=== PATIENT | female | born 1940 | race Caucasian/White ===

== ENCOUNTER 2016-06-27 06:09 | Inpatient (IN) | payer MEDICARE, BC ==
--- NOTE | 2016-06-21 15:36 | HP ---
PREOPERATIVE HISTORY AND PHYSICAL: DATE OF ADMISSION/SURGERY: 06/27/16 DATE OF OFFICE VISIT: 06/21/16 PROVIDING DOCTOR: Peter Flores MD PROCEDURE: Right total hip replacement. CHIEF COMPLAINT: Right buttock, posterior thigh, and groin pain. HISTORY OF PRESENT ILLNESS: Ms. Benites is a 75-year-old female who presents to the clinic for ongoing right buttock, thigh, and groin pain due to severe osteoarthritis of her right hip. She has failed conservative measures and therefore has agreed to undergo a right total hip replacement with Dr. Carbajal on 06/27/16. PAST MEDICAL HISTORY: Hypothyroidism. Denies history of diabetes. Denies any history of DVT or em bolism. PAST SURGICAL HISTORY: Left total hip replacement, cholecystectomy, and tonsillectomy and adenoidec diana. MEDICATIONS: 1. Levothyroxine sodium. 2. Multivitamins. ALLERGIES: PENICILLIN causes a rash. She is not allergic to third generation cephalosporins. SOCIAL HISTORY: She lives alone. She is retired. She denies tobacco or alcohol use. She reports occasional exercise. REVIEW OF SYSTEMS: General: Negative for fevers, chills, night sweats. No known anesthesia proble HEENT: Negative for headache, lightheadedness, or syncopal episodes. Integumentary: Negative for abrasions, lesions, or open wounds. Cardiothoracic: Negative for chest pain, palpitations, or edema. Negative for hypertension. Pulmonary: Negative for shortness of breath with exertion, infrastructure design engineer simone cough, or COPD. GI: Negative for nausea, vomiting, diarrhea, or GERD. : Negative for noctur ia, urinary frequency, history of UTIs, or kidney problems. Musculoskeletal: Positive for current c omplaint. Neuro: Negative for paresthesias, numbness, history of seizure, stroke, or epilepsy. En docrine: Negative for diabetes. Positive for hypothyroidism. Heme: Negative for easy bruising, an emia, excessive bleeding, history of DVT or PE. Infectious Disease: Negative for history of MRSA, h ep C, or HIV. PHYSICAL EXAMINATION GENERAL: Well-developed, well-nourished 75-year-old female in no acute distress. Alert and oriented x3. Appropriate mood and affect. VITAL SIGNS: Height 66, weight 165. Pulse 72, blood pressure 130/68, respiratory rate 14. BMI 26. 6. HEENT: Normocephalic, atraumatic. NECK: Supple. Throat clear. PULMONARY: Lungs are clear to auscultation bilaterally. No wheezing, rhonchi or rales. CARDIO: Regular rate and rhythm. S1 and S2. No murmurs, gallops, or rubs. No edema. No carotid bruits. ABDOMEN: Positive bowel sounds, soft, nontender. MUSCULOSKELETAL: Right lower extremity antalgic gait favoring the right side. Right hip flexion in the 90 degrees. Straight leg raise causing groin pain on the right. External rotation to 25 degree s with pain. Internal rotation to 10 degrees with pain. She is able to pull her knees together and with some pain. Hip is nontender to palpation; +2 dorsalis pedis and posterior tibialis puls e. Sensation intact to light touch distally. NEUROLOGIC: Alert and oriented x3. Cranial nerves grossly intact. Sensation intact to light touch . DIAGNOSTIC STUDIES: Multiple view x-rays of the right hip reveal osteopenia with large osteophytes on the femoral neck and the acetabulum and irregular subchondral bone consistent with osteoarthriti s. IMPRESSION: Right hip severe osteoarthritis. PLAN/RECOMMENDATIONS: The patient is scheduled to undergo a right total hip replacement with Dr. Carbajal on 06/27/16. She will return to the office 4 to 6 weeks postop for followup and x-rays. Percoc et will be used postoperatively for pain medication and Colace for opioid-induced constipation preve ntion. EZEQUIEL GODOY [id number]/[facility] #: [id number]
[~2016-06-27 06:09] MED LIST: Buffered Lidocaine 1% SYR 3ML* 3 ML/SYR SYRINGE INTRADERM ONE; Dexamethasone IV* 4 MG/ML 1 ML (4 MG) IV SLOW PU ONE; Famotidine IV* 10 MG/ML 2 ML (20 mg) IV ONE; oxyCODONE/Acetamin 5/325 MG* TAB PO PRN
[2016-06-27] MEDS ORDERED: Dexamethasone IV* 4 MG/ML 1 ML (4 MG) ONE (06:10)
[2016-06-27] MEDS ORDERED: Clindamycin 900 MG IVPREMIX(* 0 MG/0 ML SDV IV ONE (06:10)
[2016-06-27] MEDS ORDERED: Famotidine IV* 10 MG/ML 2 ML (20 mg) ONE (06:10)
[2016-06-27] MEDS ORDERED: Midazolam* 1 MG/ML 5 ML VIAL (5 MG) ONE ×2 (07:12→08:27)
[2016-06-27] MEDS ORDERED: Bupivacaine 0.5% W/EPI SDV* 30 ML VIAL ONE (07:14)
[2016-06-27] MEDS ORDERED: ceFAZolin 2 GM PREMIX(*) 2 GM/50 ML BAG IVPB ONE (07:15)
[2016-06-27] MEDS ORDERED: Bupivacaine 0.5% SDV PF* 30 ML VIAL ONE (07:25)
[2016-06-27] MEDS ORDERED: Propofol* 10 MG/ML 20 ML BTL IV PUSH ONE (07:25)
[2016-06-27] MEDS ORDERED: Ondansetron INJ* 2 MG/ML VIAL ONE (07:25)
[2016-06-27] MEDS ORDERED: Morphine PF AMP (0.5MG/ML)* 5 MG/10 ML AMP ONE (07:27)
[2016-06-27] MEDS ORDERED: KETAMINE HCL* 50 MG/ML 10 ML VIAL ONE (07:27)
[2016-06-27] MEDS ORDERED: Glycopyrrolate IV* 0.2 MG/ML 1 ML VIAL ONE (07:51)
[2016-06-27] MEDS ORDERED: Phenylephrine IV* 40 MCG/ML 10 ML SYRINGE ONE (07:57)
[2016-06-27] MEDS ORDERED: Phenylephrine INJ* 10 MG/ML 1 ML VIAL (10 MG) ONE (07:58)
[2016-06-27] MEDS ORDERED: EPHEDrine (Pressors)* 50 MG/ML VIAL ONE (08:36)
[2016-06-27] MEDS ORDERED: Nalbuphine* 20 MG/ML 1 ML VIAL IV PRN ×2 (08:38)
[2016-06-27] MEDS ORDERED: fentaNYL* 50 MCG/ML 2 ML VIAL (100 MCG VIAL) IV PRN (08:38)
[2016-06-27] MEDS ORDERED: Naloxone* 0.4 MG/ML 1 ML VIAL IV PRN (08:38)
[2016-06-27] MEDS ORDERED: Ondansetron INJ* 2 MG/ML VIAL IV PRN (08:38)
[2016-06-27] MEDS ORDERED: oxyCODONE/Acetamin 5/325 MG* TAB PO PRN (08:38)
[2016-06-27] MEDS ORDERED: Ropivacaine* 300 MG in NS 0.9% 250 ML* 240 ML EPIDURAL SCH (09:00)
[2016-06-27] MEDS ORDERED: diPHENhydraMINE IV* 50 MG/ML 1 ml VIAL (BENADRYL) IV PRN (09:46)
[2016-06-27] MEDS ORDERED: ceFAZolin 1 GM in Dextrose (*) 1 GM/50 ML BAG IVPB SCH (10:00)
--- NOTE | 2016-06-27 10:31 | RAD ---
INDICATION: Status post right hip replacement surgery. COMPARISON: Comparison is made with a prior x-ray study of the pelvis from March 15, 2016. TECHNIQUE: An AP view of the pelvis was obtained. FINDINGS: The patient is status post right total hip replacement surgery. The bones and prostheses are in normal alignment. There is air around the proximal femur consistent with the patient's recent surgery and multiple surgical rosetta present laterally. The patient is also status post remote total left hip replacement surgery. IMPRESSION: STATUS POST TOTAL RIGHT HIP REPLACEMENT SURGERY.
[2016-06-27] MEDS: ceFAZolin 1 GM in Dextrose (*) 1 GM/50 ML BAG IVPB SCH ×2 (14:14→20:05)
[2016-06-27] MEDS: Docusate CAP* 100 MG PO SCH (20:05)
--- NOTE | 2016-06-27 21:01 | OP ---
CC: Dr. Pawan White in [place] OPERATIVE REPORT: DATE OF OPERATION: 06/27/16 DATE OF : 36 SURGICAL CARE: Right hip, 06/27/16. SURGEON: Peter Flores MD. MEAT SELECTOR: EZEQIUEL Gee, and Kely Sow, surgical attendant. ANESTHESIOLOGIST: Dr. Bc Lima. ANESTHESIA: Spinal with Duramorph and epidural. PRE-OP DIAGNOSIS: Severe arthritis of the right hip. POST-OP DIAGNOSIS: Severe arthritis of the right hip. OPERATIVE PROCEDURE: Right total hip replacement. COMPONENTS UTILIZED: Jeanne Continuum cup 52-mm cluster holes, 1 screw was placed superiorly. A ne utral linear for a 52 cup and a 36 head. On the femoral side, an M/L Taper standard 12.5 with a -3. 5, 36-mm head cobalt chrome. COMPLICATIONS: There were no complications. DRAINS: There were no drains. BLOOD LOSS: 200 mL. REPLACEMENT: Crystalloid fluids. OPERATIVE INDICATION: Severe arthritis of the right hip that has been no longer responsive to nonop erative care and right total hip replacement was recommended. DESCRIPTION OF PROCEDURE: The patient was brought to the operating room and placed on the operating table in a supine position. Following the administration of the anesthetic, she was returned to th e supine position and a Wynn catheter was inserted. She was carefully placed in the left lateral p osition with the downside left leg padded to see that there was no pressure on the peroneal nerve at the fibular head and neck. The groin was sealed off and the pelvis was secured over the ASIS in th e sacrum with a hip positioner. Blankets were placed between the legs and the right hip was given a preliminary chlorhexidine prep and then a final ChloraPrep. After prepped, draping, and sealing of f, we did our universal protocol time-out confirming Andreina Benites and planned for right total hip rep lacement. We all agreed and we proceeded. The hip was approached with a curving posterolateral ski n incision going from the greater trochanter distally for 1.5 to 2 inches and curving slightly proxi mk and posteriorly towards the posterior iliac spine for 2.5 to 3 inches. The skin and subcutane ous divided. Hemostasis was checked and achieved throughout the case utilizing electrocautery. The iliotibial fascia was opened over the greater trochanter and over the fibers of the gluteus katherine going slightly posteriorly. A Charnley retractor was inserted. The gluteus medius and minimus wer e carefully retracted anteriorly exposing the piriformis and the conjoint tendon. Piriformis and co njoint tendon were each marked with a #2 Surgidac and then a careful posterior approach to the hip w as done with careful hemostasis staying close to bone and femoral neck. The femoral head had a larg e posterior osteophyte that we maneuvered around. The hip was dislocated without difficulty and the femoral neck was marked for the M/L taper cutting guide and cut a little less than a fingerbreadth proximal to the lesser trochanter. Head and neck was removed. The head was completely eburnated an d especially in the region on the posterior osteophyte, which was an inch and a half in size, juttin g out and down. Retraction for the acetabulum, sharp Hohmann's anteriorly and posteriorly, blunt Ho hmann's superiorly and inferiorly. The remains of the labrum were exercised sharply. The medial so ft tissues were excised. Reaming was then done, 44, 46, 48, 50, and 52. We cleaned the acetabulum several times with pulsed saline. A 52 Continuum cup was impacted into the position and 45 degrees of abduction and 20 degrees of anteversion. One screw was placed superiorly. Neutral liner was raj sonia with nice fit. The acetabulum was then packed with a saline soaked lap sponge. On the femoral side we used the can al finder and the trochanteric reamer. Broaching was done 5 through 12.5 and we did a trial reducti on with a 12.5 standard neck and +0 and this was a little tight, which showed the 12.5 standard M/L taper stem, this was impacted into position and we elected to use the - 3.5, 36 mm head, which was p laced on a clean trunnion. Examination showed a negative push, pull, and extension. No tendency to wards levering with IR, ER and extension. Flexion of 90 degrees allowed, adduction of 30 degrees, i nternal rotation of 30 degrees prior to this location. We checked again for hemostasis. The area w as irrigated with 2 L of pulsed saline. After obtaining final hemostasis, I did not think drains we re necessary. The piriformis, conjoint tendon were packed, reattached through 2 drill holes to the posterior superior greater trochanter and this included the underlying capsular flap as well. Iliot ibial band closed with interrupted #1 Polysorb in [id number] fashion and more proximally with g luteus katherine, we used 0 Polysorb and the deep subcu with 2-0 Polysorb, 2-0 Polysorb on the superfi cial subcu and then rosetta on the skin. We irrigated several times during the closure with saline. The skin was washed and dried and covered with Betadine soaked release, sterile gauze, an ABD kali rafat and paper tape. The patient was returned to the hospital bed into the recovery room in a stable and satisfactory condition having tolerated the procedure very well. [id number]/[facility] #: [id number]
[2016-06-28] MEDS: ceFAZolin 1 GM in Dextrose (*) 1 GM/50 ML BAG IVPB SCH (01:53)
[2016-06-28] MEDS: Levothyroxine TAB* 112 MCG TAB PO SCH (05:14)
[2016-06-28] MEDS ORDERED: Morphine INJ* 2 MG/ML 1 ML SYRINGE IV PRN (06:00)
[2016-06-28] MEDS ORDERED: oxyCODONE/Acetamin 5/325 MG* TAB PO PRN (06:00)
[2016-06-28] MEDS ORDERED: Ondansetron INJ* 2 MG/ML VIAL IV PRN (06:00)
[2016-06-28 06:42] LABS: Hematocrit 29 % (35-47); Hemoglobin 9.5 g/dl (12.0-16.0)
[2016-06-28 06:57] LABS: BUN/Creatinine Ratio 16.4 (8-20); Calcium 8.7 mg/dL (8.6-10.3); EGFR African American 109.8 (>60); EGFR Non-African American 85.3 (>60); Potassium 3.8 mmol/L (3.5-5.0)
[2016-06-28] MEDS: oxyCODONE/Acetamin 5/325 MG* TAB PO PRN ×4 (07:46→20:33)
[2016-06-28] MEDS: Docusate CAP* 100 MG PO SCH ×2 (09:09→20:33)
[2016-06-28] MEDS: Aspirin TAB* 325 MG PO SCH (09:09)
[2016-06-28] MEDS: Magnesium Hydroxide LIQ* 30 ML UDC PO PRN ×2 (09:09→20:34)
[2016-06-28] MEDS: Vitamin THERAPEUTIC TAB PO SCH (09:09)
[2016-06-29 06:24] LABS: Hematocrit 30 % (35-47)
[2016-06-29] MEDS: Levothyroxine TAB* 112 MCG TAB PO SCH (06:36)
[2016-06-29] MEDS: oxyCODONE TAB* 5 MG TAB PO PRN ×4 (06:39→21:15)
[2016-06-29] MEDS: Vitamin THERAPEUTIC TAB PO SCH (09:59)
[2016-06-29] MEDS: Docusate CAP* 100 MG PO SCH ×2 (09:59→21:17)
[2016-06-29] MEDS: Aspirin TAB* 325 MG PO SCH (09:59)
[2016-06-30] MEDS: oxyCODONE TAB* 5 MG TAB PO PRN ×2 (03:29→08:42)
[2016-06-30] MEDS: Levothyroxine TAB* 112 MCG TAB PO SCH (05:50)
[2016-06-30 06:40] LABS: Hematocrit 27 % (35-47); Hemoglobin 9.1 g/dl (12.0-16.0)
[2016-06-30] MEDS: Vitamin THERAPEUTIC TAB PO SCH (08:42)
[2016-06-30] MEDS: Docusate CAP* 100 MG PO SCH (08:42)
[2016-06-30] MEDS: Aspirin TAB* 325 MG PO SCH (08:42)
[2016-06-30 11:55] VITALS: BP 109/67
[2016-06-30] MEDS: oxyCODONE/Acetamin 5/325 MG* TAB PO PRN (13:02)
--- NOTE | 2016-07-02 23:52 | DS ---
DISCHARGE SUMMARY: DATE OF ADMISSION/SURGERY: 06/27/16 DATE OF DISCHARGE: 06/30/16 CHIEF COMPLAINTS: 1. Right hip osteoarthritis. 2. Hypothyroidism. DISCHARGE DIAGNOSES: 1. Status post right total hip replacement. 2. Hypothyroidism. PROCEDURE: Right total hip arthroplasty. CONSULTATIONS: 1. Physical therapy. 2. Occupational therapy. BRIEF HISTORY: Ms. Benites is a very pleasant 75-year-old female with severe end- stage degenerative osteoarthritis of the right hip, who failed conservative treatment and elected to undergo a right total hip arthroplasty on 06/27/[address] Flores. HOSPITAL COURSE: Ms. Benites was admitted to [facility] on 06/27/16, where she underwent an uncomplicated right total hip arthroplasty. Postoperatively, she recovered on the surgical short-stay unit. Her Wynn was removed on postoperative day 2. She was voiding on her own without difficulty, she was advanced to a regular diet, and her pain was controlled with p.o. Percocet. She was restarted on her home medications. Her labs and vital signs remained stable. She was able to bear weight as tolerated on the right lower extremity. She advanced appropriately with physical therapy and occupational therapy. Her DVT prophylaxis was managed in help of Lovenox. By postoperative day 3, she was orthopedically and medically stable for discharge to go home with home services. PHYSICAL EXAMINATION: General: Well-appearing, in no acute distress. Alert and oriented x3. Vital Signs: On date of discharge, temperature of 98.2, pulse rate of 89, respiratory rate of 16, oxygen saturation of 94% on room air, and blood pressure 126/59. Incision was noted to be benign without erythema, drainage, or visible clinical signs of infection. On the right hip, the gauze and paper tape dressing was applied with triple antibiotic ointment over the rosetta, which appeared all intact. The patient had equal dorsiflexion and plantar flexion on bilateral feet and posterior tibial pulses were 2+. Negative Homans sign bilaterally. Sensation to light touch was intact. LABORATORY DATA: On date of discharge includes an H and H of 9.1 and 27. RADIOGRAPHS: Postoperative films show a satisfactory right total hip replacement. DISCHARGE MEDICATIONS: 1. Aspirin 325 mg p.o. daily. 2. Colace 100 mg p.o. b.i.d. 3. Gas-X 1 tablet p.o. daily p.r.n. 4. Lactobacillus 1 tablet p.o. daily. 5. Levothyroxine 112 mcg 1 tablet p.o. daily. 6. Percocet 5/325 mg 1 to 2 tablets every 3 to 4 hours as needed for pain. CONDITION ON DISCHARGE: Stable. DISCHARGE INSTRUCTIONS: Ms. Benites is a very pleasant 75-year-old female, postoperative day 3, status post right total hip arthroplasty, which was uncomplicated. She is orthopedically and medically stable to go home with home services. Her labs and vital signs are stable. She will restart her home medications. She will take aspirin 325 mg p.o. daily for DVT prophylaxis. She will remain weightbearing as tolerated on the right lower extremity. She will have home physical therapy 1 to 2 times a week. She will take Percocet as needed for pain control and Colace up to 3 times a day for constipation. She is educated to call us if she does not have a bowel movement within 48 hours. She will follow up with Dr. Flores in approximately 4 to 6 weeks. Her roestta will be removed by home nursing services. She was instructed to go immediately to the ER should she develop chest pain or shortness of breath. Should she develop fever, increasing pain or redness, she is to call the office immediately. EZEQUIEL HAGER [id number]/[facility] #: [id number] MTDD
== END 2016-06-30 13:30 | disposition home health service (06) | DRG 470 ==
LOC: AA 06:09 → SSU 11:26
PROVIDERS: ADMIT Orthopaedic Surgery; ATTEND Orthopaedic Surgery
PROC: 0SR902Z Replacement of Right Hip Joint with Metal on Polyethylene Synthetic Substitute, Open Approach (ICD-10-PCS; principal; 2016-06-27 07:30)
DX: M16.11 Unilateral primary osteoarthritis, right hip (principal); Z96.642 Presence of left artificial hip joint; D62 Acute posthemorrhagic anemia; E03.9 Hypothyroidism, unspecified; Z88.0 Allergy status to penicillin; M25.751 Osteophyte, right hip; Z79.82 Long term (current) use of aspirin
CPT/HCPCS: 36415; 62327; 72170; 80048; 85014; 85018; 88304; 88311; A9270-GY; C1713; C1776; J0690; J1100; J2250; J2300; J2405; J2704; J2795

== ENCOUNTER 2016-07-06 10:36 | Emergency (ER) | payer MEDICARE, BC ==
[2016-07-06 10:45] VITALS: BP 124/61
--- NOTE | 2016-07-06 12:03 | RAD ---
INDICATION: Right total hip replacement. Pain. COMPARISON: June 27, 2016 TECHNIQUE: An AP view of the pelvis and AP views of the hip in neutral and abducted position were obtained FINDINGS: Bones: There are no acute bony findings. There is recent right-sided hip arthroplasty. Both femoral and acetabular components appear well seated. Joint spaces: Bilateral hip arthroplasty. SI joints/symphysis: The SI joints and symphysis are intact. Other: There are skin rosetta in the superficial soft tissues on the right related to the recent surgery. IMPRESSION: THE RIGHT HIP PROSTHESIS APPEARS NORMALLY SEATED.
--- NOTE | 2016-07-06 12:18 | ED ---
Lower Extremity - HPI Summary HPI Summary: Patient presents with right hip and leg muscle pain. She had a right THR on and was discharged a week ago. She had her first PT session four days ago and felt the therapist was more aggressive with repetitions and number of exercises compared to her previous therapist for her left THR four years ago. Her pain began two days after this session and she has had to increase the amount of pain medication she is using. She denies falling or yanna trauma to the leg or hip and is able to ambulate with her walker. No N/T, warmth or new swelling. She has mature bruising throughout the leg. - History of Current Complaint Chief Complaint: EDExtremityLligia Stated Complaint: PELVIC PAIN, JUST HAD HIP SURGERY ON Time Seen by Provider: 07/06/16 10:59 Hx Obtained From: Patient Mechanism Of Injury: Unknown Onset of Pain: Days Onset/Duration: Days Severity Initially: Mild Severity Currently: Severe Pain Intensity: 7 Timing: Constant Location: Is Discrete @ - right hip and upper thigh Character Of Pain: Sharp, Aching Associated Signs And Symptoms: Positive: Negative Aggravating Factor(s): Movement Alleviating Factor(s): Rest Able to Bear Weight: Yes - with pain - Allergies/Home Medications Allergies/Adverse Reactions: Allergies Allergy/AdvReac Type Severity Reaction Status Date / Time Penicillins Allergy Intermediate Rash Verified 06/21/16 11:10 PMH/Surg Hx/FS Hx/Imm Hx Endocrine/Hematology History: Reports: Hx Thyroid Disease - HYPOTHYROIDISM Denies: Hx Sickle Cell Disease Cardiovascular History: Reports: Hx Rheumatic Fever - A CHILD 12 YEARS OF AGE , NO HEART MURMUR RESULTING FROM, Other Cardiovascular Problems/Disorders - AORTIC ANEURYSM FOUND 07/2009. HAS BEEN AT 4.[facility] FOR THE LAST COUPLE OF YRS Respiratory History: Reports: Hx Asthma - HX OF IN THE PAST Denies: Other Respiratory Problems/Disorders GI History: Reports: Other GI Disorders - CONSTIPATION//"GAS BUILDUP"-GAS PILL HELPS History: Denies: Other Problems/Disorders Musculoskeletal History: Reports: Hx Arthritis - LEFT HIP, RIGHT HIP Sensory History: Reports: Hx Cataracts - BILATERAL, Hx Contacts or Glasses - GLASSES Denies: Hx Hearing Aid Opthamlomology History: Reports: Hx Cataracts - BILATERAL, Hx Contacts or Glasses - GLASSES Neurological History: Denies: Other Neuro Impairments/Disorders - Cancer History Hx Radiation Therapy: No - Surgical History Surgery Procedure, Year, and Place: GALLBLADDER - 1993 [facility], Left Hip [id number]/2013. 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 1951-TONSILLECTOMY Hx Anesthesia Reactions: Yes - 2012-IRRITABLE DAY AFTER SURGERY;[facility] Infectious Disease History: No Infectious Disease History: Denies: Traveled Outside the [place] in Last 30 Days - Family History Known Family History: Positive: None - Social History Occupation: Retired Lives: With Family Alcohol Use: None Substance Use Type: Reports: None Smoking Status (MU): Never Smoked Tobacco Review of Systems Negative: Chest Pain Negative: Shortness Of Breath Positive: Myalgia, Decreased ROM, Edema Positive: Bruising Negative: Paresthesia, Numbness All Other Systems Reviewed And Are Negative: Yes Physical Exam Triage Information Reviewed: Yes Vital Signs On Initial Exam: Initial Vitals Temp Pulse Resp BP Pulse Ox 97.8 F 85 16 124/61 95 07/06/16 10:41 07/06/16 10:41 07/06/16 10:41 07/06/16 10:41 07/06/16 10:41 Vital Signs Reviewed: Yes Appearance: Positive: Well-Appearing, Well-Nourished, Pain Distress Skin: Positive: Warm, Skin Color Reflects Adequate Perfusion, Dry, Soft Head/Face: Positive: Normal Head/Face Inspection Eyes: Positive: EOMI, ADOLFO, Conjunctiva Clear ENT: Positive: Hearing grossly normal Respiratory/Lung Sounds: Positive: Breath Sounds Present Cardiovascular: Positive: RRR Musculoskeletal: Positive: Limited @ - AROM painful in all planes; PROM intact with only mild discomfort. Negative: Ingrid Sign Left, Ingrid Sign Right Neurological: Positive: Sensory/Motor Intact, Alert, Oriented to Person Place, Time, NV Bundle Intact Distally Psychiatric: Positive: Affect/Mood Appropriate AVPU Assessment: Alert Diagnostics - Vital Signs Vital Signs Temp Pulse Resp BP Pulse Ox 07/06/16 10:41 97.8 F 85 16 124/61 95 - Laboratory Lab Statement: Any lab studies that have been ordered have been reviewed, and results considered in the medical decision making process. - Radiology No standard instances Xray Interpretation: No Acute Changes Radiology Interpretation Completed By: Radiologist Lower Extremity Course/Dx - Diagnoses Differential Diagnosis/HQI/PQRI: Positive: Arthritis, Bursitis, Cellulitis, Contusion, Dislocation, DVT, Fracture (Closed), Infection, Sprain, Strain Provider Diagnoses: right leg muscle strain Discharge - Discharge Plan Condition: Stable Disposition: HOME Patient Education Materials: Muscle Strain (ED) Referrals: Pawan White MD [Primary Care Provider] - Additional Instructions: Please perform normal daily activities for the next 2-3 days and decrease PT exercises. Continue using your pain medication as needed. Follow-up with Dr. Flores's office as scheduled or call to be seen sooner as needed. Return to the emergency department if symptoms worsen.
== END 2016-07-06 12:55 | disposition home or self-care (01) ==
LOC: ED 10:36
DX: S76.911A Strain of unspecified muscles, fascia and tendons at thigh level, right thigh, initial encounter (principal); X50.3XXA Overexertion from repetitive movements, initial encounter; Y93.B9 Activity, other involving muscle strengthening exercises; Z88.0 Allergy status to penicillin; E03.9 Hypothyroidism, unspecified; J45.909 Unspecified asthma, uncomplicated
CPT/HCPCS: 99281

== ENCOUNTER 2016-08-11 07:45 | Inpatient (IN) | payer MEDICARE, BC ==
--- NOTE | 2016-08-10 02:35 | HP ---
PREOPERATIVE HISTORY AND PHYSICAL: DATE OF SURGERY/ADMISSION: 08/11/16 DATE OF OFFICE VISIT: 08/09/16 ATTENDING SURGEON: Dr. Flores. PROCEDURE: Revision of right total hip femoral component and repair of periprosthetic fracture. CHIEF COMPLAINT: Right hip pain. HISTORY OF PRESENT ILLNESS: Andreina is a 76-year-old female who is status post right total hip replacement by Dr. Flores on 06/27/16, who has had complaint of increasing right hip pain after surgery. She states that she did have home physical therapy with some exercises and did feel some pain. Three days later she did have x-rays which showed no fractures. However, in the office today, she had x- rays which did show a periprosthetic fracture of the right femur. She has agreed to go ahead with revision of right total hip femoral component and repair of periprosthetic fracture. This will be done on 08/11/[address] Flores. PAST MEDICAL HISTORY: Hypothyroidism. Denies history of diabetes. Denies history of DVT or . PAST SURGICAL HISTORY: Right total hip replacement, left total hip replacement , cholecystectomy, and tonsillectomy and adenoidectomy. MEDICATIONS: 1. Levothyroxine. 2. Multivitamins. 3. Tylenol. ALLERGIES: PENICILLIN which causes a rash. She is not allergic to third generation cephalosporins. FAMILY HISTORY: Negative and noncontributory. SOCIAL HISTORY: She lives alone. She is retired. She denies tobacco or alcohol use. She reports occasional exercise. REVIEW OF SYSTEMS: General: Negative for fevers, chills, night sweats. No known anesthesia problems. HEENT: Negative for headache, lightheadedness or syncopal episodes. Integumentary: Negative for abrasion, lesions or open wounds. Cardiothoracic: Negative for chest pain, palpitations or edema. Negative for hypertension. Pulmonary: Negative for shortness of breath with exertion, chronic cough or COPD. GI: Negative for nausea, vomiting, diarrhea, constipation or GERD. : Negative for nocturia, urinary frequency, urgency, history of UTIs or kidney problems. Musculoskeletal: Positive for current complaints. Neuro: Negative for paresthesias, numbness, history of seizures, stroke or epilepsy. Endocrine: Negative for diabetes. Positive for hypothyroidism. Hematological: Negative for easy bruising, anemia except history of DVT or PE. Infectious Disease: Negative for history of MRSA, hep C or HIV. PHYSICAL EXAMINATION GENERAL: Well-developed, well-nourished, 76-year-old female in no acute distress. VITAL SIGNS: Weight 160 pounds, pulse is 88, blood pressure is 118/75, temperature is 98. BMI of 25.1. HEENT: Head is normocephalic, atraumatic. NECK: Supple. No palpable lymph nodes. PULMONARY: Lungs are clear to auscultation. No wheezes, rhonchi or rales. CARDIO: Regular rate and rhythm. S1, S2. No murmurs, rubs or gallops. No edema. ABDOMEN: Soft, nontender, nondistended. Positive bowel sounds throughout. MUSCULOSKELETAL: Right lower extremity antalgic gait favoring the right side. Hip flexion is guarded. The right lower extremity is shortened and externally rotated. 2+ dorsalis pedis and posterior tibialis pulses. Sensation intact to light touch. NEUROLOGIC: Alert and oriented x3. Cranial nerves II through XII grossly intact. Sensation is intact to light touch. STUDIES: X-rays taken today did show a periprosthetic fracture, status post right total hip replacement. IMPRESSION: Periprosthetic fracture, status post right total hip replacement on 06/27/16. PLAN: The patient is scheduled to undergo a revision of right total hip femoral component and repair of periprosthetic fracture on 08/11/[address] Flores. She will be admitted to the hospital as a direct admit on the day of surgery. She will get a hospital consult for medical clearance prior to her surgery. She will likely go to short-term rehab postoperatively and will follow up with Dr. Flores in the postoperative period. EZEQUIEL AMATO [id number]/[facility] #: [id number] CARIN
[~2016-08-11 07:45] MED LIST changes: +Buffered Lidocaine 0.9% SYRIN* 5 ML/SYR SYRINGE INTRADERM ONE; -Buffered Lidocaine 1% SYR 3ML* 3 ML/SYR SYRINGE INTRADERM ONE; -Dexamethasone IV* 4 MG/ML 1 ML (4 MG) IV SLOW PU ONE; -Famotidine IV* 10 MG/ML 2 ML (20 mg) IV ONE; +Gabapentin CAP(*) 300 MG PO ONE; +celeCOXIB CAP* 100 MG PO ONE; -oxyCODONE/Acetamin 5/325 MG* TAB PO PRN
[2016-08-11 08:29] LABS: Hematocrit 38 % (35-47); Hemoglobin 12.7 g/dl (12.0-16.0); Mean Corpuscular HGB Conc 33 g/dl (31-36); Mean Corpuscular Hemoglobin 31 pg (27-31); Mean Corpuscular Volume 92 fL (80-97); Mean Platelet Volume 8 um3 (7.4-10.4); Red Blood Count 4.17 10^6/ul (4.0-5.4); Red Cell Distribution Width 15 % (10.5-15); White Blood Count 5.6 10^3/ul (3.5-10.8)
[2016-08-11 08:44] LABS: BUN/Creatinine Ratio 17.3 (8-20); Calcium 10.5 mg/dL (8.6-10.3); EGFR African American 96.1 (>60); EGFR Non-African American 74.7 (>60); Potassium 3.7 mmol/L (3.5-5.0)
[2016-08-11] MEDS ORDERED: oxyCODONE TAB* 5 MG TAB PO PRN ×2 (09:04)
[2016-08-11] MEDS ORDERED: Acetaminophen TAB* 325 MG PO PRN (09:05)
[2016-08-11] MEDS ORDERED: Ondansetron INJ* 2 MG/ML VIAL IV PRN (09:06)
[2016-08-11] MEDS ORDERED: Ondansetron ODT TAB* 4 MG SL PRN (09:06)
[2016-08-11] MEDS ORDERED: Morphine INJ* 4 MG/ML 1 ML SYRINGE IV PRN (09:06)
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
[2016-08-11] MEDS ORDERED: LR @ 40 MLS/HR IV SCH (10:30)
--- NOTE | 2016-08-11 10:34 | PN ---
Progress Note - Progress Note Date of Service: 08/11/16 SOAP: Subjective: 76 y./o female s/p uncomplicated R JERILYN 06/27/2016 with recent right periprosthetic prox fem fx, to undergo revision today by Dr. Flores. Patient without questions with regards to surgery, however concerned about post-op management- re returning to home vs SNF. VSS, afebrile. Objective: General- Well appearing, NAD MSK- Minimal old bruising anterior francois, + DF/PF b/l, minimal edema b/l LEs non pitting, sensation grossly intact. Assessment: 76 y./o female s/p uncomplicated R JERILYN 06/27/2016 with recent right periprosthetic prox fem fx, to undergo revision today by Dr. Flores Plan: - Hold DVT prophylaxis until post-op - PT/ OT aware of patient for post-op management - Cleared for surg by hospitalists today - Labs WNL - Pain management Active Medications Generic Name Dose Route Start Last Admin Trade Name Freq PRN Reason Stop Dose Admin Acetaminophen 650 mg 08/11/16 09:05 Tylenol Tab* PO Q6H PRN pain, fever Docusate Sodium 100 mg 08/11/16 09:04 Colace Cap* PO BID PRN CONSTIPATION Lactated Ringer's 1,000 mls @ 200 mls/hr 08/11/16 06:00 08/11/16 10:19 Lactated Ringers 1000 Ml Bag* IV 100 mls/hr PER RATE LINDA Administration Levothyroxine Sodium 112 mcg 08/12/16 06:00 Synthroid Tab* PO 0600 LINDA Morphine Sulfate 4 mg 08/11/16 09:06 Morphine Inj (Syringe)* IV Q4H PRN PAIN - BREAKTHROUGH Multivitamins/Minerals 1 tab 08/12/16 09:00 Theragran/Minerals Tab* PO QAM LINDA Ondansetron HCl 4 mg 08/11/16 09:06 Zofran Inj* IV Q6H PRN NAUSEA Ondansetron HCl 4 mg 08/11/16 09:06 Zofran Odt Tab* SL Q6H PRN NAUSEA/VOMITING Oxycodone HCl 5 mg 08/11/16 09:04 Roxycodone Tab* PO Q4H PRN PAIN - MILD TO MODERATE Oxycodone HCl 10 mg 08/11/16 09:04 Roxycodone Tab* PO Q4H PRN PAIN - MODERATE TO SEVERE Vital Signs Temp Pulse Resp 14 08/11/16 09:07 BP Pulse Ox Intake & Output 08/10/16 08/11/16 08/11/16 18:59 06:59 18:59 Output Total 200 Balance -200 Weight 158 lb Output: Urine 200 Laboratory Results - last 24 hr 08/11/16 08/11/16 08/11/16 08:15 08:15 08:15 WBC 5.6 RBC 4.17 Hgb 12.7 Hct 38 MCV 92 MCH 31 MCHC 33 RDW 15 Plt Count 247 MPV 8 INR (Anticoag Therapy) 1.02 APTT 31.7 Sodium 138 Potassium 3.7 Chloride 106 Carbon Dioxide 26 Anion Gap 6 BUN 13 Creatinine 0.75 Est GFR ( Amer) 96.1 Est GFR (Non-Af Amer) 74.7 BUN/Creatinine Ratio 17.3 Glucose 106 H Calcium 10.5 H Blood Type Antibody Screen 08/11/16 08:15 WBC RBC Hgb Hct MCV MCH MCHC RDW Plt Count MPV INR (Anticoag Therapy) APTT Sodium Potassium Chloride Carbon Dioxide Anion Gap BUN Creatinine Est GFR ( Amer) Est GFR (Non-Af Amer) BUN/Creatinine Ratio Glucose Calcium Blood Type O Positive Antibody Screen Negative
[2016-08-11 10:39] LABS: C Reactive Protein 1.19 mg/L (< 5.00)
[2016-08-11] MEDS ORDERED: ceFAZolin 2 GM PREMIX(*) 2 GM/50 ML BAG IVPB ONE (15:25)
[2016-08-12] MEDS: Levothyroxine TAB* 112 MCG TAB PO SCH (05:10)
[2016-08-12] MEDS ORDERED: ceFAZolin 2 GM PREMIX(*) 2 GM/50 ML BAG IVPB ONE (08:35)
[2016-08-12] MEDS ORDERED: Propofol* 0 MG/0 ML BTL ONE (09:20)
[2016-08-12] MEDS ORDERED: Midazolam* 1 MG/ML 2 ML VIAL (2 MG) ONE (09:28)
[2016-08-12] MEDS ORDERED: Remifentanil* 2 MG VIAL ONE (09:28)
[2016-08-12] MEDS: Multivitamins/Minerals TAB PO SCH ×2 (09:31→11:11)
[2016-08-12] MEDS ORDERED: ROPIVACAINE 5 MG/ML 30 ML BTL (0.5%) ONE (09:34)
[2016-08-12] MEDS: Heparin VIAL(*) 5000 UNITS/ML VIAL (FIVE THOUSAND) SUBCUT SCH ×2 (11:11→20:06)
--- NOTE | 2016-08-12 11:21 | PN ---
Progress Note - Progress Note Date of Service: 08/12/16 Note: Surgery has been delayed until likely 08/14/16. I will not plan on seeing the patient over the weekend unless something is needed. Will ask that a partner follow up after surgery.
[2016-08-12 12:28] LABS: Hematocrit 39 % (35-47); Hemoglobin 12.3 g/dl (12.0-16.0); Mean Corpuscular HGB Conc 32 g/dl (31-36); Mean Corpuscular Hemoglobin 30 pg (27-31); Mean Corpuscular Volume 94 fL (80-97); Mean Platelet Volume 8 um3 (7.4-10.4); Red Cell Distribution Width 15 % (10.5-15); White Blood Count 6.9 10^3/ul (3.5-10.8)
[2016-08-12 12:42] LABS: EGFR African American 104.1 (>60); EGFR Non-African American 80.9 (>60)
[2016-08-12] MEDS: Docusate CAP* 100 MG PO PRN (20:06)
[2016-08-13] MEDS: Levothyroxine TAB* 112 MCG TAB PO SCH (05:41)
--- NOTE | 2016-08-13 08:05 | PN ---
Progress Note - Progress Note Date of Service: 08/13/16 SOAP: Subjective: Pt resting comfortably in bed, states that previous back pain has improved. Anxious about upcoming procedure. Denies CP/SOB, calf pain Objective: Vitals: Temp Pulse Resp BP Pulse Ox 98.3 F 72 16 125/72 96 08/13/16 03:30 08/13/16 03:30 08/13/16 03:30 08/13/16 03:30 08/13/16 03:30 Gen: A&Ox3, NAD at rest RLE: Hip with mild ttp, calf soft, NT. +f/e at ankles, MTPs. N/V intact, 2+ DP pulse Assessment: Right hip periprosthetic fracture Plan: OR tomorrow, NPO after MN Continue bedrest, SCDs and SQ Heparin
[2016-08-13] MEDS: Multivitamins/Minerals TAB PO SCH (08:30)
[2016-08-13] MEDS: Docusate CAP* 100 MG PO PRN ×2 (08:30→20:35)
[2016-08-13] MEDS: Heparin VIAL(*) 5000 UNITS/ML VIAL (FIVE THOUSAND) SUBCUT SCH ×3 (08:30→20:35)
[2016-08-14] MEDS: Levothyroxine TAB* 112 MCG TAB PO SCH (05:26)
[2016-08-14] MEDS: Multivitamins/Minerals TAB PO SCH (07:35)
[2016-08-14] MEDS ORDERED: ceFAZolin 2 GM PREMIX(*) 2 GM/50 ML BAG IVPB ONE (08:05)
[2016-08-14] MEDS ORDERED: Midazolam* 1 MG/ML 2 ML VIAL (2 MG) ONE ×4 (09:57→14:08)
[2016-08-14] MEDS ORDERED: fentaNYL* 50 MCG/ML 2 ML VIAL (100 MCG VIAL) ONE (09:57)
[2016-08-14] MEDS ORDERED: Morphine PF AMP (0.5MG/ML)* 5 MG/10 ML AMP ONE (10:15)
[2016-08-14] MEDS ORDERED: KETAMINE HCL* 50 MG/ML 10 ML VIAL ONE (10:16)
[2016-08-14] MEDS ORDERED: Bupivacaine 0.5% SDV PF* 30 ML VIAL ONE (10:16)
[2016-08-14] MEDS ORDERED: Famotidine IV* 10 MG/ML 2 ML (20 mg) ONE (11:07)
[2016-08-14] MEDS ORDERED: Propofol* 10 MG/ML 20 ML BTL IV PUSH ONE ×2 (11:07→13:48)
[2016-08-14] MEDS ORDERED: EPHEDrine (Pressors)* 50 MG/ML VIAL ONE ×2 (11:07→12:49)
[2016-08-14] MEDS ORDERED: diPHENhydraMINE IV* 50 MG/ML 1 ml VIAL (BENADRYL) ONE (11:57)
[2016-08-14] MEDS ORDERED: fentaNYL* 50 MCG/ML 2 ML VIAL (100 MCG VIAL) IV PRN (12:09)
[2016-08-14] MEDS ORDERED: DiMENhydriNATE IV* 50 MG/ML VIAL IV PUSH PRN (12:09)
[2016-08-14] MEDS ORDERED: Ondansetron INJ* 2 MG/ML VIAL IV PRN ×2 (12:09→12:12)
[2016-08-14] MEDS ORDERED: oxyCODONE/Acetamin 5/325 MG* TAB PO PRN (12:09)
[2016-08-14] MEDS ORDERED: Naloxone* 0.4 MG/ML 1 ML VIAL IV PRN (12:12)
[2016-08-14] MEDS ORDERED: Ketorolac INJ* 30 MG/ML 1 ML VIAL IV PRN (12:12)
[2016-08-14] MEDS ORDERED: diPHENhydraMINE IV* 50 MG/ML 1 ml VIAL (BENADRYL) IV PRN (12:12)
[2016-08-14] MEDS ORDERED: Nalbuphine* 20 MG/ML 1 ML VIAL IV PRN ×2 (12:12→12:16)
[2016-08-14] MEDS ORDERED: oxyCODONE TAB* 5 MG TAB PO PRN (12:16)
[2016-08-14] MEDS ORDERED: EPHEDrine (Pressors)* 50 MG/ML VIAL IV PUSH PRN (12:16)
[2016-08-14] MEDS ORDERED: Lactated Ringers 500 ml BAG* 500 ML IV PRN (12:16)
[2016-08-14] MEDS ORDERED: Hetastarch in NS* 500 ML IV ONE (12:54)
[2016-08-14] MEDS ORDERED: Ropivacaine 0.2% EPIDURAL* 200 MG/100 ML BAG EPIDURAL SCH (13:00)
[2016-08-14] MEDS ORDERED: Ropivacaine 0.2% EPIDURAL* 200 MG/100 ML BAG EPIDURAL ONE (13:02)
[2016-08-14] MEDS ORDERED: Bupivacaine 0.25% EPI 200,000* 30 ML SDV ONE (13:48)
[2016-08-14] MEDS ORDERED: Acetaminophen TAB* 325 MG PO PRN (14:56)
[2016-08-14] MEDS ORDERED: Bisacodyl SUPP* 10 MG SUPP PR PRN (15:03)
[2016-08-14] MEDS ORDERED: Polyethylene Glycol 3350* 17 GM PACKET PO PRN (15:03)
--- NOTE | 2016-08-14 15:10 | RAD ---
INDICATION: Right hip revision COMPARISONS: August 09, 2016 TECHNIQUE: Fluoroscopy was provided for a surgical procedure. Total fluoroscopy time is: 7.5 seconds FINDINGS: Limited spot images demonstrate internal fixation of the femur along a femoral prosthesis. IMPRESSION: FLUOROSCOPY WAS PROVIDED FOR A SURGICAL PROCEDURE CPT II Codes: 6045F
[2016-08-14 15:11] LABS: Hematocrit 28 % (35-47)
--- NOTE | 2016-08-14 16:24 | RAD ---
Indication: Right hip replacement. 2 views of the right hip and an AP view the pelvis demonstrates right hip replacement in satisfactory position. Circumferential wires are noted. IMPRESSION: Revision of right hip prosthesis appears to be in satisfactory position.
--- NOTE | 2016-08-14 16:33 | PN ---
Subjective Date of Service: 08/14/16 Interval History: No c/o. Denies pain. She seems still somewhat sedated from OR anesthesia. Objective Active Medications: Acetaminophen (Tylenol Tab*) 650 mg PO Q4H PRN PRN Reason: mild pain or fever Aspirin (Aspirin Ec Low Dose*) 81 mg PO ONCE ONE Stop: 08/15/16 15:04 Bisacodyl (Dulcolax Supp*) 10 mg MA DAILY PRN PRN Reason: constipation Dimenhydrinate (Dramamine Iv*) 12.5 mg IV PUSH ONCE PRN PRN Reason: NAUSEA/VOMITING Stop: 08/14/16 12:10 Diphenhydramine HCl (Benadryl Iv*) 12.5 mg IV Q2H PRN PRN Reason: PRURITIS Stop: 08/15/16 04:12 Diphenhydramine HCl (Benadryl Iv*) 25 mg IV Q6H PRN PRN Reason: itching Diphenhydramine HCl (Benadryl Po*) 25 mg PO Q6H PRN PRN Reason: INSOMNIA Docusate Sodium (Colace Cap*) 100 mg PO BID LINDA Ephedrine Sulfate (Ephedrine Sulfate (Pressors)*) 5 mg IV PUSH Q5M PRN PRN Reason: HYPOTENSION Fentanyl Citrate (Fentanyl*) 25 mcg IV Q5M PRN PRN Reason: PAIN - MODERATE Stop: 08/14/16 12:30 Heparin Sodium (Porcine) (Heparin Vial(*)) 5,000 units SUBCUT Q12HR LINDA Ropivacaine (Ropivacaine 0.2% Epidural*) 200 mg in 100 mls @ 0 mls/hr EPIDURAL .PER RATE LINDA; Per Protocol PRN Reason: Protocol Lactated Ringer's (Lactated Ringers 500 Ml Bag*) 500 mls @ 2,000 mls/hr IV ONCE PRN PRN Reason: FOR SBP < 90 Stop: 08/15/16 02:31 Cefazolin Sodium 1 gm/ Sodium (Chloride) 50 mls @ 200 mls/hr IVPB Q8H LINDA Stop: 08/15/16 07:14 Lactated Ringer's (Lactated Ringers 1000 Ml Bag*) 1,000 mls @ 100 mls/hr IV PER RATE LINDA Ketorolac Tromethamine (Toradol Inj*) 15 mg IV Q6H PRN PRN Reason: PAIN Stop: 08/15/16 00:13 Lactulose (Lactulose*) 30 ml PO Q6H PRN PRN Reason: constipation Levothyroxine Sodium (Synthroid Tab*) 112 mcg PO 0600 LINDA Last Admin: 08/14/16 05:26 Dose: 112 mcg Morphine Sulfate (Morphine Inj (Syringe)*) 5 mg IV Q2H PRN PRN Reason: PAIN Multivitamins (Theragran Tab*) 1 tab PO DAILY [facility] Nalbuphine HCl (Nubain*) 5 mg IV Q6H PRN PRN Reason: pruritis Stop: 08/15/16 04:12 Nalbuphine HCl (Nubain*) 5 mg IV Q6H PRN PRN Reason: NAUSEA/VOMITING Stop: 08/15/16 02:31 Naloxone HCl (Narcan*) 0.08 mg IV Q2M PRN PRN Reason: respiratory depression Stop: 08/15/16 04:12 Ondansetron HCl (Zofran Inj*) 2 mg IV ONCE PRN PRN Reason: NAUSEA/VOMITING Stop: 08/14/16 12:10 Ondansetron HCl (Zofran Inj*) 4 mg IV Q4H PRN PRN Reason: Nausea/Vomiting Stop: 08/15/16 04:12 Ondansetron HCl (Zofran Inj*) 4 mg IV Q4H PRN PRN Reason: NAUSEA/VOMITING Stop: 08/15/16 02:31 Ondansetron HCl (Zofran Inj*) 4 mg IV Q6H PRN PRN Reason: nausea Ondansetron HCl (Zofran Tab*) 4 mg PO Q6H PRN PRN Reason: NAUSEA Oxycodone HCl (Roxycodone Tab*) 5 mg PO Q4H PRN PRN Reason: PAIN - MODERATE Stop: 08/15/16 02:31 Oxycodone HCl (Roxycodone Tab*) 10 mg PO Q4H PRN PRN Reason: Breakthru pain Oxycodone/Acetaminophen (Percocet 5/325 Tab*) 1 tab PO ONCE PRN PRN Reason: PAIN - MODERATE Stop: 08/15/16 12:10 Oxycodone/Acetaminophen (Percocet 5/325 Tab*) 1 tab PO Q3H PRN PRN Reason: moderate pain Stop: 08/15/16 02:31 Oxycodone/Acetaminophen (Percocet 5/325 Tab*) 1 tab PO Q3H PRN PRN Reason: PAIN - MODERATE Oxycodone/Acetaminophen (Percocet 5/325 Tab*) 2 tab PO Q3H PRN PRN Reason: PAIN - MODERATE Polyethylene Glycol/Electrolytes (Miralax*) 17 gm PO DAILY PRN PRN Reason: Constipation Vital Signs 08/13/16 08/13/16 08/13/16 19:35 19:43 19:45 Temperature 98.8 F Pulse Rate 78 Respiratory 17 16 16 Rate Blood Pressure 113/63 (mmHg) O2 Sat by Pulse 97 Oximetry 08/13/16 08/14/16 08/14/16 23:32 03:15 07:33 Temperature 98.0 F 98.5 F 97.7 F Pulse Rate 66 67 71 Respiratory 16 16 16 Rate Blood Pressure 124/68 126/68 143/62 (mmHg) O2 Sat by Pulse 97 95 97 Oximetry 08/14/16 08/14/16 08/14/16 08:00 14:47 14:50 Temperature 97.0 F Pulse Rate 72 86 Respiratory 16 14 14 Rate Blood Pressure 86/40 86/49 (mmHg) O2 Sat by Pulse 99 98 Oximetry 08/14/16 08/14/16 08/14/16 14:55 15:00 15:15 Temperature Pulse Rate 75 73 67 Respiratory 14 14 14 Rate Blood Pressure 75/60 80/44 89/49 (mmHg) O2 Sat by Pulse 98 98 100 Oximetry 08/14/16 08/14/16 08/14/16 15:30 15:45 16:00 Temperature 97.0 F Pulse Rate 68 63 65 Respiratory 15 14 16 Rate Blood Pressure 92/46 83/48 89/45 (mmHg) O2 Sat by Pulse 100 100 100 Oximetry Oxygen Devices in Use Now: Nasal Cannula Appearance: Alert, supine on PACU stretcher. In good spirits. Looks comfortable. Eyes: No Scleral Icterus Respiratory: Symmetrical Chest Expansion and Respiratory Effort, Clear to Auscultation, Clear to Percussion Extremities: No Edema, No Clubbing, Cyanosis, - Skin: No Rash or Ulcers, No Nodules or Sclerosis, - - pale Neurological: Alert and Oriented x 3, NL Sensation, - - mildly sedated Result Diagrams: 08/14/16 15:06 08/12/16 12:19 Microbiology and Other Data: Microbiology 08/14/16 11:43 Gram Stain - Final Wound - Hip Right Assess/Plan/Problems-Billing Assessment: - Patient Problems (1) Periprosthetic hip fracture Current Visit: Yes Status: Acute Code(s): M97.8XXA - PERIPROSTH FRACTURE AROUND OTHER INTERNAL PROSTH JOINT, INIT; Z96.649 - PRESENCE OF UNSPECIFIED ARTIFICIAL HIP JOINT SNOMED Code(s): 273438144 Comment: S/P ORIF per Dr. Flores 08/14/16. Epidural anesthesia. Dr. Colindres recommended very limited walking for the next 2 weeks. (2) Anemia Current Visit: Yes Status: Acute Code(s): D64.9 - ANEMIA, UNSPECIFIED SNOMED Code(s): 241595733 Comment: EBL 500 ml. To get 2 U PC's 08/14, CBC 08/15. (3) Hypotension Current Visit: Yes Status: Acute Comment: Related to OR blood loss, epidural anesthesia, other OR meds. Should resolve with time and transfusion. (4) Hypothyroid Current Visit: Yes Status: Acute Code(s): E03.9 - HYPOTHYROIDISM, UNSPECIFIED SNOMED Code(s): 89093030 Comment: TSH wnl 06/21/16.
[2016-08-14] MEDS ORDERED: Ropivacaine 0.1% (300 MG) in 300mL NS EPIDURAL EPIDURAL SCH (19:00)
[2016-08-14] MEDS: ceFAZolin VIAL(*) 1 GM in NS 0.9% 50 ML* 50 ML IVPB SCH (20:45)
[2016-08-14] MEDS: Ondansetron INJ* 2 MG/ML VIAL IV PRN (21:35)
[2016-08-14] MEDS ORDERED: Furosemide IV* 10 MG/ML 2 ML VIAL (20 MG) IV ONE (23:10)
--- NOTE | 2016-08-14 23:10 | PN ---
Progress Note - Progress Note Date of Service: 08/14/16 Note: Anesthesia requested evaluation as they were called re: increased confusion & mild tachycardia. Mrs Benites is POD 2 gaby-prosthetic femur FX repair who historically has had post-op delirium on day 2. She denies chest pain, N/V, SOB , F/C, N/V, sweats, or uncontrolled pain. Otherwise, appears comfortable and in no distress. General: WNWD elderly female, NAD HEENT: atraumatic, normocephalic, intact facial symmetry, EOMI/PERRLA LUNGS: CTAB, normal effort CV: RRR with occasional skip beat, normal S1S1 Abdomen: SNTND, NABS, no HSMM Extremities: warm & dry Psychiatric: AA&O to PPS, not time (states it is currently December), calm & cooperative Assessment: plan post-op delirium : monitoring : continue bed alarm tachycardia : given 2units pRBCs post-op, possibly early volume overload : give 20mg IV furosemide x1 and monitor
[2016-08-14] MEDS ORDERED: Furosemide IV* 10 MG/ML 2 ML VIAL (20 MG) ONE (23:15)
[2016-08-14] MEDS: Docusate CAP* 100 MG PO SCH (23:29)
[2016-08-15] MEDS ORDERED: oxyCODONE/Acetamin 5/325 MG* TAB PO PRN (02:32)
[2016-08-15] MEDS ORDERED: Morphine INJ* 10 MG/ML 1 ML SYRINGE IV PRN (02:32)
[2016-08-15] MEDS ORDERED: oxyCODONE TAB* 5 MG TAB PO PRN (02:32)
[2016-08-15] MEDS: ceFAZolin VIAL(*) 1 GM in NS 0.9% 50 ML* 50 ML IVPB SCH ×2 (03:23→12:15)
[2016-08-15] MEDS ORDERED: diPHENhydraMINE PO* 25 MG PO PRN (04:13)
[2016-08-15] MEDS ORDERED: Ondansetron INJ* 2 MG/ML VIAL IV PRN (04:13)
[2016-08-15] MEDS ORDERED: diPHENhydraMINE IV* 50 MG/ML 1 ml VIAL (BENADRYL) IV PRN (04:13)
[2016-08-15] MEDS ORDERED: Ondansetron TAB* 4 MG PO PRN (04:13)
[2016-08-15 04:58] LABS: Hematocrit 35 % (35-47); Hemoglobin 11.6 g/dl (12.0-16.0); Mean Corpuscular HGB Conc 33 g/dl (31-36); Mean Corpuscular Hemoglobin 30 pg (27-31); Mean Corpuscular Volume 91 fL (80-97); Mean Platelet Volume 8 um3 (7.4-10.4); Red Blood Count 3.82 10^6/ul (4.0-5.4); Red Cell Distribution Width 16 % (10.5-15); White Blood Count 10.7 10^3/ul (3.5-10.8)
[2016-08-15 05:13] LABS: BUN/Creatinine Ratio 14.5 (8-20); Calcium 9.3 mg/dL (8.6-10.3); EGFR African American 94.7 (>60); EGFR Non-African American 73.6 (>60); Potassium 4.5 mmol/L (3.5-5.0)
[2016-08-15] MEDS: Levothyroxine TAB* 112 MCG TAB PO SCH (06:03)
[2016-08-15] MEDS: Vitamin THERAPEUTIC TAB PO SCH (08:21)
[2016-08-15] MEDS: Docusate CAP* 100 MG PO SCH ×2 (08:21→20:57)
--- NOTE | 2016-08-15 08:54 | PN ---
Progress Note - Progress Note Date of Service: 08/15/16 SOAP: Subjective: Pt states she is doing well. She slept well overnight. Her pain is controlled. Denies CP, SOB, calf pain, lightheadedness or f/c. She got 2 units of PRBCs last night. Objective: 76 y/o F NAD, A&Ox3, lying in bed comfortably RLE- dressing c/d/i, no warmth or erythema, able DF/PF ankle, calf soft nontender, + 2 DP pulse, SILT Vital Signs Temp Pulse Resp BP Pulse Ox 97.3 F 104 16 94/52 94 08/15/16 07:46 08/15/16 07:46 08/15/16 07:46 08/15/16 07:46 08/15/16 07:46 Laboratory Results - last 24 hr 08/14/16 08/14/16 08/15/16 15:00 15:06 04:41 WBC 10.7 RBC 3.82 L Hgb 9.0 L 11.6 L Hct 28 L 35 MCV 91 MCH 30 MCHC 33 RDW 16 H Plt Count 149 L MPV 8 Neut % (Auto) 86.4 H Lymph % (Auto) 4.5 L [place] % (Auto) 8.4 Eos % (Auto) 0.6 Baso % (Auto) 0.1 Absolute Neuts (auto) 9.3 H Absolute Lymphs (auto) 0.5 L Absolute Monos (auto) 0.9 H Absolute Eos (auto) 0.1 Absolute Basos (auto) 0 Absolute Nucleated RBC 0 Nucleated RBC % 0 Sodium Potassium Chloride Carbon Dioxide Anion Gap BUN Creatinine Est GFR ( Amer) Est GFR (Non-Af Amer) BUN/Creatinine Ratio Glucose Calcium Blood Type O Positive Antibody Screen Negative Crossmatch See Detail 08/15/16 04:41 WBC RBC Hgb Hct MCV MCH MCHC RDW Plt Count MPV Neut % (Auto) Lymph % (Auto) [place] % (Auto) Eos % (Auto) Baso % (Auto) Absolute Neuts (auto) Absolute Lymphs (auto) Absolute Monos (auto) Absolute Eos (auto) Absolute Basos (auto) Absolute Nucleated RBC Nucleated RBC % Sodium 134 Potassium 4.5 Chloride 105 Carbon Dioxide 28 Anion Gap 1 L BUN 11 Creatinine 0.76 Est GFR ( Amer) 94.7 Est GFR (Non-Af Amer) 73.6 BUN/Creatinine Ratio 14.5 Glucose 138 H Calcium 9.3 Blood Type Antibody Screen Crossmatch Assessment: POD 1 S/P revision right JERILYN for tx of fx Plan: Given 2 unit transfusion, improved H&H, continue to monitor Baby ASA today, start heparin on 08/16 WBAT 3-4 steps bed to chair Appreciate hospitalist input
[2016-08-15] MEDS: Ondansetron INJ* 2 MG/ML VIAL IV PRN (09:13)
[2016-08-15] MEDS: oxyCODONE/Acetamin 5/325 MG* TAB PO PRN ×3 (09:28→20:57)
--- NOTE | 2016-08-15 10:28 | OP ---
DATE OF OPERATION: 08/14/16 - ROOM #350 DATE OF : 36 SURGICAL CARE: Right hip and thigh. SURGEON: Dr. Flores. ASSISTANTS: EZEQUIEL Wolfe and Danielle , surgical instrument technician. ANESTHESIOLOGIST: Dr. Jarek Puentes. ANESTHESIA: Spinal with Duramorph and epidural, IV sedation. PRE-OP DIAGNOSIS: Periprosthetic fracture, right total hip replacement with loosening and subsidence of the femoral component. POST-OP DIAGNOSIS: Same the femoral component was replaced using the [employer] femoral Restorationism system, the removed components were Jeanne M-L taper stem with 36 mm Co-Cr head OPERATIVE PROCEDURE: Right hip revision of the femoral component with the Poth episcopal modular hip system and 3 [employer] cables 2.0. Repain of the periprosthetic fracture with Cables. COMPLICATIONS: There were no complications. DRAINS: There were no drains. ESTIMATED BLOOD LOSS: 500 mL. REPLACEMENT: Crystalloid fluids. CONDITION: Condition was stable to the recovery room. OPERATIVE INDICATION: Periprosthetic fracture of the right total hip replacement femoral stem with comminution of the proximal femur and subsidence loosening of the stem. DESCRIPTION OF PROCEDURE: The patient was brought to the operating room and placed on the operating room table in a supine position. She was put in the seated position for administration of the spinal Duramorph and the epidural. She was then returned to the supine position. The Wynn catheter was inserted. The patient was carefully placed in the left lateral position with a folded blanket under left greater trochanter, and the pelvis was secured over the ASIS and the sacrum utilizing the hip positioner. The groin was sealed off. The right hip and the right lower extremity were then prepped and draped free in the usual manner for surgical care of the hip. Prior to prepping, a preliminary chlorhexidine prep was completed in the region of the hip and then a complete prep in the region of the hip and down to the foot. After prepping, draping, and sealing off, we did our universal protocol time-out confirming Andreina Benites and a plan described as above. We all agreed and we proceeded. The hip was approached with the previous slightly curving posterior lateral skin incision and this was extended on the distal end going anteriorly and distally down the lateral thigh. The extension was 5 to 6 inches. The skin and subcu divided including in the region of the previous surgery. The deep fascia was exposed throughout the skin incision and then the fascia was divided down into the trochanteric bursa into the hip replacement. There was some little bloody fluid, this was cultured. The fascia of the vastus lateralis was also divided longitudinally down to the bone and the proximal femur was exposed subperiosteally and the proximal femur had evidence of healing bone on its periosteal surface. A Dall-Miles cables were placed around the femur, distal to the fracture and proximal to the fracture, two Dall-Miles cables were placed around one proximal to the lesser trochanter, one distal to the lesser trochanter. The cables were preliminarily tightened and the posterior vertical fracture line reduced near anatomically' The hip was dislocated without any difficulty with internal rotation. The old femoral head was knocked off the trunion without any difficulty and then the femoral component was removed after grabbing the taper with an implant removal instrument from the [employer] system and then removed without difficulty or any disruption of the fracture area. The implant had subsided into the fracture. After removal of the femoral component was when the 2 cables around the fracture area were preliminarily tightened The fracture of the proximal femur was vertical and the fragment was loose posteromedially. The femoral canal finder was then utilized to get into the distal femur and reaming was done here starting at 10 or 11 and going to 18 and the first episcopal stem that went into the distal femur turned out to be too loose, so this was removed. Reaming was done to 20 and then the fit was tight with a size 20. Once the distal femur was cleaned and reamed, we did a preliminary fluoroscopy to check and the alignment was satisfactory. The 127 episcopal stem was then inserted into position. The proximal femur was then prepared for the proximal modular component. Proximal reaming was done up to 22 and the first modular that we put on was too long and reduction was not possible, the second modular was 23 mm +0, it was put on and put in the anteversion of 15 to 20 degrees and a nice reduction was possible with a +0 head and neck. This was then chosen as the final components and the 23 +0 modular upper component was inserted into position proximally 20 degrees of anteversion and secured there. Once this was in position, then the +0 offset 36-mm head was impacted into position and reduced with nice fit of all soft tissues. The hip was reduced and all the Dall-Miles cables were then tightened. I did not think that bone grafting or plating was necessary and the distal cerclage wire on the femur also serving as insurance against distal femoral breakage. The wound was irrigated with liters of saline irrigation solution as we closed and the soft tissues were swabbed to remove debris with lap sponges. The fascia of the vastus lateralis was closed with a running 0 Polysorb suture. The fascia moisés closed with interrupted #1 polysorb in [id number] fashion. The deep and superficial subcu closed with 0 and then 2-0 Polysorb and then multiple rosetta on the skin. The skin was then washed and dried and covered with Betadine soaked release followed by sterile gauze, ABD pads, and then paper tape. The patient was returned to the hospital bed in the supine position into the recovery room in stable and satisfactory condition, and the abduction pillow was utilized. The postoperative x- ray shows very satisfactory alignment of the right total hip replacement, the modular Poth femoral component with proximal and distal segments, and the cerclage. The periosteum of the femur was not interfered with in the region of the postero- medial fragment. The patient tolerated the procedure well. [id number]/[facility] #: [id number] CARIN
--- NOTE | 2016-08-15 13:18 | PN ---
Subjective Date of Service: 08/15/16 Interval History: Some pain with activity. Diminished appetite. No new c/o. Objective Active Medications: Acetaminophen (Tylenol Tab*) 650 mg PO Q4H PRN PRN Reason: mild pain or fever Aspirin (Aspirin Ec Low Dose*) 81 mg PO ONCE ONE Stop: 08/15/16 15:04 Bisacodyl (Dulcolax Supp*) 10 mg [place] DAILY PRN PRN Reason: constipation Diphenhydramine HCl (Benadryl Iv*) 25 mg IV Q6H PRN PRN Reason: itching Diphenhydramine HCl (Benadryl Po*) 25 mg PO Q6H PRN PRN Reason: INSOMNIA Docusate Sodium (Colace Cap*) 100 mg PO BID [facility] Last Admin: 08/15/16 08:21 Dose: 100 mg Ephedrine Sulfate (Ephedrine Sulfate (Pressors)*) 5 mg IV PUSH Q5M PRN PRN Reason: HYPOTENSION Heparin Sodium (Porcine) (Heparin Vial(*)) 5,000 units SUBCUT Q12HR [facility] Lactated Ringer's (Lactated Ringers 500 Ml Bag*) 500 mls @ 2,000 mls/hr IV ONCE PRN PRN Reason: FOR SBP < 90 Stop: 08/16/16 23:59 Lactated Ringer's (Lactated Ringers 1000 Ml Bag*) 1,000 mls @ 100 mls/hr IV PER RATE [facility] Last Admin: 08/14/16 20:30 Dose: 100 mls/hr Ropivacaine 300 mg/ Sodium (Chloride) 300 mls @ 0 mls/hr EPIDURAL .PER RATE [facility] ; Per Protocol PRN Reason: Protocol Lactulose (Lactulose*) 30 ml PO Q6H PRN PRN Reason: constipation Levothyroxine Sodium (Synthroid Tab*) 112 mcg PO 0600 [facility] Last Admin: 08/15/16 06:03 Dose: 112 mcg Morphine Sulfate (Morphine Inj (Syringe)*) 5 mg IV Q2H PRN PRN Reason: PAIN Multivitamins (Theragran Tab*) 1 tab PO DAILY [facility] Last Admin: 08/15/16 08:21 Dose: 1 tab Nalbuphine HCl (Nubain*) 5 mg IV Q6H PRN PRN Reason: pruritis Stop: 08/16/16 23:59 Nalbuphine HCl (Nubain*) 5 mg IV Q6H PRN PRN Reason: NAUSEA/VOMITING Stop: 08/16/16 23:59 Ondansetron HCl (Zofran Inj*) 4 mg IV Q4H PRN PRN Reason: NAUSEA/VOMITING Stop: 08/16/16 23:59 Last Admin: 08/15/16 09:13 Dose: 4 mg Ondansetron HCl (Zofran Inj*) 4 mg IV Q6H PRN PRN Reason: nausea Ondansetron HCl (Zofran Tab*) 4 mg PO Q6H PRN PRN Reason: NAUSEA Oxycodone HCl (Roxycodone Tab*) 5 mg PO Q4H PRN PRN Reason: PAIN - MODERATE Stop: 08/16/16 23:59 Oxycodone HCl (Roxycodone Tab*) 10 mg PO Q4H PRN PRN Reason: Breakthru pain Oxycodone/Acetaminophen (Percocet 5/325 Tab*) 1 tab PO Q3H PRN PRN Reason: moderate pain Stop: 08/16/16 23:59 Last Admin: 08/15/16 09:28 Dose: 1 tab Oxycodone/Acetaminophen (Percocet 5/325 Tab*) 1 tab PO Q3H PRN PRN Reason: PAIN - MODERATE Oxycodone/Acetaminophen (Percocet 5/325 Tab*) 2 tab PO Q3H PRN PRN Reason: PAIN - MODERATE Polyethylene Glycol/Electrolytes (Miralax*) 17 gm PO DAILY PRN PRN Reason: Constipation Vital Signs 08/14/16 08/14/16 08/14/16 14:47 14:50 14:55 Temperature 97.0 F Pulse Rate 72 86 75 Respiratory 14 14 14 Rate Blood Pressure 86/40 86/49 75/60 (mmHg) O2 Sat by Pulse 99 98 98 Oximetry 08/14/16 08/14/16 08/14/16 15:00 15:15 15:30 Temperature Pulse Rate 73 67 68 Respiratory 14 14 15 Rate Blood Pressure 80/44 89/49 92/46 (mmHg) O2 Sat by Pulse 98 100 100 Oximetry 08/14/16 08/14/16 08/14/16 15:45 16:00 16:15 Temperature 97.0 F Pulse Rate 63 65 65 Respiratory 14 16 15 Rate Blood Pressure 83/48 89/45 92/43 (mmHg) O2 Sat by Pulse 100 100 100 Oximetry 08/14/16 08/14/16 08/14/16 16:30 16:45 17:00 Temperature 97.5 F Pulse Rate 71 81 76 Respiratory 16 16 15 Rate Blood Pressure 88/42 99/53 94/51 (mmHg) O2 Sat by Pulse 99 94 92 Oximetry 08/14/16 08/14/16 08/14/16 17:15 17:30 17:45 Temperature Pulse Rate 81 94 81 Respiratory 16 14 14 Rate Blood Pressure 94/49 95/46 86/50 (mmHg) O2 Sat by Pulse 98 100 100 Oximetry 08/14/16 08/14/16 08/14/16 18:00 18:15 18:30 Temperature 97.5 F Pulse Rate 80 88 81 Respiratory 16 16 14 Rate Blood Pressure 90/51 85/48 81/48 (mmHg) O2 Sat by Pulse 100 100 100 Oximetry 08/14/16 08/14/16 08/14/16 18:45 19:00 19:16 Temperature 97.7 F 97.2 F Pulse Rate 87 87 87 Respiratory 14 14 14 Rate Blood Pressure 100/86 90/50 100/59 (mmHg) O2 Sat by Pulse 100 100 100 Oximetry 08/14/16 08/14/16 08/14/16 19:30 19:45 20:00 Temperature Pulse Rate 88 88 85 Respiratory 14 14 14 Rate Blood Pressure 97/55 103/53 99/50 (mmHg) O2 Sat by Pulse 100 100 100 Oximetry 08/14/16 08/14/16 08/14/16 20:25 21:07 21:19 Temperature 98.7 F 98.6 F Pulse Rate 95 103 Respiratory 11 16 14 Rate Blood Pressure 113/63 105/48 (mmHg) O2 Sat by Pulse 100 100 Oximetry 08/14/16 08/14/16 08/15/16 22:32 22:56 00:00 Temperature 98.0 F 98.0 F Pulse Rate 116 115 Respiratory 18 16 Rate Blood Pressure 110/61 98/62 (mmHg) O2 Sat by Pulse 98 99 99 Oximetry 08/15/16 08/15/16 08/15/16 00:32 01:24 02:31 Temperature 98.5 F 97.9 F 98.1 F Pulse Rate 115 117 111 Respiratory 18 18 18 Rate Blood Pressure 108/64 107/59 99/56 (mmHg) O2 Sat by Pulse 99 99 100 Oximetry 08/15/16 08/15/16 08/15/16 03:32 07:46 08:00 Temperature 98.2 F 97.3 F Pulse Rate 107 104 Respiratory 18 16 18 Rate Blood Pressure 100/52 94/52 (mmHg) O2 Sat by Pulse 99 94 94 Oximetry 08/15/16 08/15/16 08/15/16 09:28 11:28 11:58 Temperature 98.3 F Pulse Rate 101 Respiratory 18 18 16 Rate Blood Pressure 107/66 (mmHg) O2 Sat by Pulse 96 Oximetry 08/15/16 12:36 Temperature Pulse Rate Respiratory Rate Blood Pressure (mmHg) O2 Sat by Pulse 94 Oximetry Oxygen Devices in Use Now: Nasal Cannula Appearance: Partly up in bed. In good spirits. Looks comfortable. Extremities: No Edema, No Clubbing, Cyanosis, - Skin: No Rash or Ulcers, No Nodules or Sclerosis, - Neurological: Alert and Oriented x 3, NL Sensation Result Diagrams: 08/15/16 04:41 08/15/16 04:41 Microbiology and Other Data: Microbiology 08/14/16 11:43 Gram Stain - Final Wound - Hip Right Assess/Plan/Problems-Billing Assessment: - Patient Problems (1) Periprosthetic hip fracture Current Visit: Yes Status: Acute Code(s): M97.8XXA - PERIPROSTH FRACTURE AROUND OTHER INTERNAL PROSTH JOINT, INIT; Z96.649 - PRESENCE OF UNSPECIFIED ARTIFICIAL HIP JOINT SNOMED Code(s): 810478407 Comment: S/P ORIF per Dr. Flores 08/14/16. Epidural anesthesia. Dr. Flores has recommended very limited walking for the next 2 weeks. (2) Anemia Current Visit: Yes Status: Acute Code(s): D64.9 - ANEMIA, UNSPECIFIED SNOMED Code(s): 245813808 Comment: EBL 500 ml. Received 2 U PC's 08/14. Hct 35 08/15. (3) Hypotension Current Visit: Yes Status: Acute Comment: Related to OR blood loss, epidural anesthesia, other OR meds. Should resolve with time and transfusion. (4) Hypothyroid Current Visit: Yes Status: Acute Code(s): E03.9 - HYPOTHYROIDISM, UNSPECIFIED SNOMED Code(s): 98001981 Comment: TSH wnl 5/10/17. (5) Delirium Current Visit: Yes Status: Acute Code(s): R41.0 - DISORIENTATION, UNSPECIFIED SNOMED Code(s): 9836161 Comment: Occurred night after surgery. Resolved the next AM. Pt does not recall this event.
[2016-08-15] MEDS ORDERED: Aspirin EC Low Dose* 81 MG TAB.EC PO ONE (15:03)
[2016-08-15] MEDS ORDERED: NS 0.9% 1000 ML* 1,000 ML IV ONE (16:15)
[2016-08-16] MEDS: oxyCODONE/Acetamin 5/325 MG* TAB PO PRN ×6 (02:36→22:20)
[2016-08-16] MEDS: Levothyroxine TAB* 112 MCG TAB PO SCH (05:57)
[2016-08-16 06:50] LABS: Hematocrit 28 % (35-47); Hemoglobin 9.2 g/dl (12.0-16.0)
[2016-08-16] MEDS: Docusate CAP* 100 MG PO SCH ×2 (08:44→22:19)
[2016-08-16] MEDS: Vitamin THERAPEUTIC TAB PO SCH (08:44)
[2016-08-16] MEDS: Heparin VIAL(*) 5000 UNITS/ML VIAL (FIVE THOUSAND) SUBCUT SCH ×3 (08:44→22:21)
--- NOTE | 2016-08-16 12:09 | PN ---
Subjective Date of Service: 08/16/16 Interval History: Pain control adequate. Got OOB today. Ate breakfast well. No BM since admission. Objective Active Medications: Acetaminophen (Tylenol Tab*) 650 mg PO Q4H PRN PRN Reason: mild pain or fever Bisacodyl (Dulcolax Supp*) 10 mg [place] DAILY PRN PRN Reason: constipation Diphenhydramine HCl (Benadryl Iv*) 25 mg IV Q6H PRN PRN Reason: itching Diphenhydramine HCl (Benadryl Po*) 25 mg PO Q6H PRN PRN Reason: INSOMNIA Docusate Sodium (Colace Cap*) 100 mg PO BID [facility] Last Admin: 08/16/16 08:44 Dose: 100 mg Ephedrine Sulfate (Ephedrine Sulfate (Pressors)*) 5 mg IV PUSH Q5M PRN PRN Reason: HYPOTENSION Heparin Sodium (Porcine) (Heparin Vial(*)) 5,000 units SUBCUT Q12HR [facility] Last Admin: 08/16/16 08:49 Dose: Not Given Lactated Ringer's (Lactated Ringers 500 Ml Bag*) 500 mls @ 2,000 mls/hr IV ONCE PRN PRN Reason: FOR SBP < 90 Stop: 08/16/16 23:59 Lactated Ringer's (Lactated Ringers 1000 Ml Bag*) 1,000 mls @ 100 mls/hr IV PER RATE [facility] Last Admin: 08/16/16 04:39 Dose: 100 mls/hr Ropivacaine 300 mg/ Sodium (Chloride) 300 mls @ 0 mls/hr EPIDURAL .PER RATE [facility] ; Per Protocol PRN Reason: Protocol Lactulose (Lactulose*) 30 ml PO Q6H PRN PRN Reason: constipation Levothyroxine Sodium (Synthroid Tab*) 112 mcg PO 0600 [facility] Last Admin: 08/16/16 05:57 Dose: 112 mcg Morphine Sulfate (Morphine Inj (Syringe)*) 5 mg IV Q2H PRN PRN Reason: PAIN Multivitamins (Theragran Tab*) 1 tab PO DAILY [facility] Last Admin: 08/16/16 08:44 Dose: 1 tab Nalbuphine HCl (Nubain*) 5 mg IV Q6H PRN PRN Reason: pruritis Stop: 08/16/16 23:59 Nalbuphine HCl (Nubain*) 5 mg IV Q6H PRN PRN Reason: NAUSEA/VOMITING Stop: 08/16/16 23:59 Ondansetron HCl (Zofran Inj*) 4 mg IV Q4H PRN PRN Reason: NAUSEA/VOMITING Stop: 08/16/16 23:59 Last Admin: 08/15/16 09:13 Dose: 4 mg Ondansetron HCl (Zofran Inj*) 4 mg IV Q6H PRN PRN Reason: nausea Ondansetron HCl (Zofran Tab*) 4 mg PO Q6H PRN PRN Reason: NAUSEA Oxycodone HCl (Roxycodone Tab*) 5 mg PO Q4H PRN PRN Reason: PAIN - MODERATE Stop: 08/16/16 23:59 Oxycodone HCl (Roxycodone Tab*) 10 mg PO Q4H PRN PRN Reason: Breakthru pain Oxycodone/Acetaminophen (Percocet 5/325 Tab*) 1 tab PO Q3H PRN PRN Reason: moderate pain Stop: 08/16/16 23:59 Last Admin: 08/16/16 05:57 Dose: 1 tab Oxycodone/Acetaminophen (Percocet 5/325 Tab*) 1 tab PO Q3H PRN PRN Reason: PAIN - MODERATE Oxycodone/Acetaminophen (Percocet 5/325 Tab*) 2 tab PO Q3H PRN PRN Reason: PAIN - MODERATE Last Admin: 08/16/16 09:23 Dose: 2 tab Polyethylene Glycol/Electrolytes (Miralax*) 17 gm PO BID [facility] Vital Signs 08/15/16 08/15/16 08/15/16 12:36 14:34 15:29 Temperature 98.3 F Pulse Rate 105 Respiratory 18 16 Rate Blood Pressure 106/60 (mmHg) O2 Sat by Pulse 94 98 Oximetry 08/15/16 08/15/16 08/15/16 15:35 16:34 20:16 Temperature 99.0 F Pulse Rate 99 Respiratory 16 20 Rate Blood Pressure 116/59 (mmHg) O2 Sat by Pulse 98 98 Oximetry 08/15/16 08/15/16 08/15/16 20:57 21:07 22:49 Temperature Pulse Rate Respiratory 18 20 Rate Blood Pressure (mmHg) O2 Sat by Pulse 98 Oximetry 08/16/16 08/16/16 08/16/16 00:24 02:36 03:48 Temperature 99.0 F 98.1 F Pulse Rate 90 86 Respiratory 20 16 22 Rate Blood Pressure 119/55 113/54 (mmHg) O2 Sat by Pulse 99 98 Oximetry 08/16/16 08/16/16 08/16/16 04:36 05:57 07:46 Temperature 98.4 F Pulse Rate 84 Respiratory 20 22 18 Rate Blood Pressure 99/48 (mmHg) O2 Sat by Pulse 96 Oximetry 08/16/16 08/16/16 08/16/16 07:57 08:35 09:23 Temperature Pulse Rate Respiratory 16 16 16 Rate Blood Pressure (mmHg) O2 Sat by Pulse 96 Oximetry Oxygen Devices in Use Now: Nasal Cannula Appearance: Alert, partly up in bed. In good spirits. Looks comfortable. Eyes: No Scleral Icterus Extremities: No Edema, No Clubbing, Cyanosis, - Skin: No Rash or Ulcers, No Nodules or Sclerosis, - Neurological: Alert and Oriented x 3, NL Sensation Result Diagrams: 08/16/16 06:39 08/15/16 04:41 Microbiology and Other Data: Microbiology 08/14/16 11:43 Gram Stain - Final Wound - Hip Right Assess/Plan/Problems-Billing Assessment: - Patient Problems (1) Periprosthetic hip fracture Current Visit: Yes Status: Acute Code(s): M97.8XXA - PERIPROSTH FRACTURE AROUND OTHER INTERNAL PROSTH JOINT, INIT; Z96.649 - PRESENCE OF UNSPECIFIED ARTIFICIAL HIP JOINT SNOMED Code(s): 779305393 Comment: S/P ORIF per Dr. Flores 08/14/16. Epidural anesthesia. Dr. Flores has recommended very limited walking for the next 2 weeks. (2) Anemia Current Visit: Yes Status: Acute Code(s): D64.9 - ANEMIA, UNSPECIFIED SNOMED Code(s): 660477552 Comment: EBL 500 ml. Received 2 U PC's 08/14. Hct 28 on 08/16, about her baseline. (3) Hypotension Current Visit: Yes Status: Acute Comment: Related to OR blood loss, epidural anesthesia, other OR meds. Improved. (4) Hypothyroid Current Visit: Yes Status: Acute Code(s): E03.9 - HYPOTHYROIDISM, UNSPECIFIED SNOMED Code(s): 40689185 Comment: TSH wnl 06/21/16. (5) Delirium Current Visit: Yes Status: Acute Code(s): R41.0 - DISORIENTATION, UNSPECIFIED SNOMED Code(s): 6877898 Comment: Occurred night after surgery. Resolved the next AM. Pt does not recall this event. (6) Constipation Current Visit: Yes Status: Acute Code(s): K59.00 - CONSTIPATION, UNSPECIFIED SNOMED Code(s): 38198509 Comment: PEG 17 gm bid start 7/5 PM.
--- NOTE | 2016-08-16 12:30 | PN ---
Progress Note - Progress Note Date of Service: 08/16/16 SOAP: Subjective: []Patient seen at bedside after sitting in a chair for about 2 hrs this morning. She did well with her transfer. Pain managed. + Constipation Hopes to go to [facility] for rehab. Objective: [] Vital Signs Temp 98.4 F 08/16/16 07:46 Pulse 84 08/16/16 07:46 Resp 16 08/16/16 09:23 BP 99/48 08/16/16 07:46 Pulse Ox 96 08/16/16 08:35 Intake & Output 08/15/16 08/16/16 08/16/16 18:59 06:59 18:59 Intake Total 2612 2688.8 350 Output Total 175 1325 Balance 2437 1363.8 350 Intake: IV Fluids 2007.8 LR 2007.8 IVPB 1762 ABX - CEFAZOLIN 55 LR 1707 Oral 850 680 350 Output: Wynn 175 1325 Laboratory Results - last 24 hr 08/16/16 06:39 Hgb 9.2 L Hct 28 L Right hip dressing was removed. Old bloody drainage noted. Wound benign, minimal edema or ecchymosis. wound washed with mild soap, new betadine soaked telfa, 4x4s and paper tape applied to incision calf NT and soft +DF/PF Right ankle sensation intact 2+ pedal pulse Assessment: []s/p Revision right periprosthetic hip hip fracture POD #2 Plan: []PT/OT WBAT with transfers bed to chair only for 2 weeks PEG added for constipation by Dr. Carolina Heparin q12h Await rehab bed- [facility]
[2016-08-16] MEDS: Polyethylene Glycol 3350* 17 GM PACKET PO SCH (22:20)
[2016-08-17] MEDS: oxyCODONE/Acetamin 5/325 MG* TAB PO PRN ×4 (04:36→21:53)
[2016-08-17] MEDS: Levothyroxine TAB* 112 MCG TAB PO SCH (06:22)
[2016-08-17 06:46] LABS: Hematocrit 26 % (35-47); Hemoglobin 8.5 g/dl (12.0-16.0)
[2016-08-17] MEDS: Polyethylene Glycol 3350* 17 GM PACKET PO SCH ×2 (08:39→21:54)
[2016-08-17] MEDS: Vitamin THERAPEUTIC TAB PO SCH (08:40)
[2016-08-17] MEDS: Heparin VIAL(*) 5000 UNITS/ML VIAL (FIVE THOUSAND) SUBCUT SCH ×2 (08:40→21:43)
[2016-08-17] MEDS: Docusate CAP* 100 MG PO SCH ×2 (08:40→21:42)
--- NOTE | 2016-08-17 08:49 | PN ---
Progress Note - Progress Note Date of Service: 08/17/16 SOAP: Subjective: []Patient OOB in chair eating breakfast. Feeling well, pain improving right hip. Still no BM despite adding meds last pm for constipation. Denied at [facility]. Objective: [] Vital Signs Temp 98.8 F 08/17/16 07:30 Pulse 78 08/17/16 07:30 Resp 16 08/17/16 08:40 BP 103/49 08/17/16 07:30 Pulse Ox 92 08/17/16 08:00 Intake & Output 08/16/16 08/17/16 08/17/16 18:59 06:59 18:59 Intake Total 350 660 Output Total 975 1750 Balance -625 -1090 Intake: Oral 350 660 Output: Urine 125 1750 Wynn 850 Laboratory Results - last 24 hr 08/17/16 06:19 Hgb 8.5 L Hct 26 L Right hip incision benign calf non tender and soft +DF/PF right ankle + bowel sounds, + flatus Assessment: []s/p Revision gaby prosthetic right hip fracture POD #3 Plan: []Continue current ambulation protocol- bed chair WBAT Await rehab bed offer Heparin
--- NOTE | 2016-08-17 13:42 | PN ---
Subjective Date of Service: 08/17/16 Interval History: Still no BM. Pain control OK. No new c/o. Objective Active Medications: Acetaminophen (Tylenol Tab*) 650 mg PO Q4H PRN PRN Reason: mild pain or fever Bisacodyl (Dulcolax Supp*) 10 mg [place] DAILY PRN PRN Reason: constipation Diphenhydramine HCl (Benadryl Iv*) 25 mg IV Q6H PRN PRN Reason: itching Diphenhydramine HCl (Benadryl Po*) 25 mg PO Q6H PRN PRN Reason: INSOMNIA Docusate Sodium (Colace Cap*) 100 mg PO BID [facility] Last Admin: 08/17/16 08:40 Dose: 100 mg Ephedrine Sulfate (Ephedrine Sulfate (Pressors)*) 5 mg IV PUSH Q5M PRN PRN Reason: HYPOTENSION Heparin Sodium (Porcine) (Heparin Vial(*)) 5,000 units SUBCUT Q12HR [facility] Last Admin: 08/17/16 08:40 Dose: 5,000 units Lactated Ringer's (Lactated Ringers 1000 Ml Bag*) 1,000 mls @ 100 mls/hr IV PER RATE [facility] Last Admin: 08/16/16 04:39 Dose: 100 mls/hr Ropivacaine 300 mg/ Sodium (Chloride) 300 mls @ 0 mls/hr EPIDURAL .PER RATE [facility] ; Per Protocol PRN Reason: Protocol Lactulose (Lactulose*) 30 ml PO Q6H PRN PRN Reason: constipation Last Admin: 08/17/16 08:39 Dose: 30 ml Levothyroxine Sodium (Synthroid Tab*) 112 mcg PO 0600 [facility] Last Admin: 08/17/16 06:22 Dose: 112 mcg Morphine Sulfate (Morphine Inj (Syringe)*) 5 mg IV Q2H PRN PRN Reason: PAIN Multivitamins (Theragran Tab*) 1 tab PO DAILY [facility] Last Admin: 08/17/16 08:40 Dose: 1 tab Ondansetron HCl (Zofran Inj*) 4 mg IV Q6H PRN PRN Reason: nausea Ondansetron HCl (Zofran Tab*) 4 mg PO Q6H PRN PRN Reason: NAUSEA Oxycodone HCl (Roxycodone Tab*) 10 mg PO Q4H PRN PRN Reason: Breakthru pain Oxycodone/Acetaminophen (Percocet 5/325 Tab*) 1 tab PO Q3H PRN PRN Reason: PAIN - MODERATE Oxycodone/Acetaminophen (Percocet 5/325 Tab*) 2 tab PO Q3H PRN PRN Reason: PAIN - MODERATE Last Admin: 08/17/16 12:30 Dose: 2 tab Polyethylene Glycol/Electrolytes (Miralax*) 17 gm PO BID [facility] Last Admin: 08/17/16 08:39 Dose: 17 gm Vital Signs 08/16/16 08/16/16 08/16/16 14:24 15:33 16:00 Temperature 98.9 F Pulse Rate 113 Respiratory 16 17 Rate Blood Pressure 109/67 (mmHg) O2 Sat by Pulse 94 94 Oximetry 08/16/16 08/16/16 08/16/16 16:24 19:07 19:27 Temperature 98.8 F Pulse Rate 107 Respiratory 16 16 16 Rate Blood Pressure 125/74 (mmHg) O2 Sat by Pulse 95 Oximetry 08/16/16 08/16/16 08/16/16 19:43 21:00 21:07 Temperature Pulse Rate Respiratory 18 18 Rate Blood Pressure (mmHg) O2 Sat by Pulse 95 Oximetry 08/16/16 08/16/16 08/17/16 22:20 23:30 00:20 Temperature 97.9 F Pulse Rate 86 Respiratory 18 16 16 Rate Blood Pressure 115/59 (mmHg) O2 Sat by Pulse 93 Oximetry 08/17/16 08/17/16 08/17/16 03:48 04:36 06:36 Temperature 98.0 F Pulse Rate 85 Respiratory 16 16 18 Rate Blood Pressure 132/64 (mmHg) O2 Sat by Pulse 90 Oximetry 08/17/16 08/17/16 08/17/16 07:30 08:00 08:40 Temperature 98.8 F Pulse Rate 78 Respiratory 16 18 16 Rate Blood Pressure 103/49 (mmHg) O2 Sat by Pulse 92 92 Oximetry 08/17/16 08/17/16 08/17/16 10:40 12:22 12:30 Temperature 98.0 F Pulse Rate 88 Respiratory 18 16 18 Rate Blood Pressure 118/73 (mmHg) O2 Sat by Pulse 97 Oximetry Oxygen Devices in Use Now: Nasal Cannula Appearance: Alert, in a chair. In good spirits. Looks comfortable. Eyes: No Scleral Icterus Extremities: No Edema, No Clubbing, Cyanosis Skin: No Rash or Ulcers, No Nodules or Sclerosis Neurological: Alert and Oriented x 3, NL Sensation Result Diagrams: 08/17/16 06:19 08/15/16 04:41 Microbiology and Other Data: Microbiology 08/14/16 11:43 Gram Stain - Final Wound - Hip Right Assess/Plan/Problems-Billing Assessment: - Patient Problems (1) Periprosthetic hip fracture Current Visit: Yes Status: Acute Code(s): M97.8XXA - PERIPROSTH FRACTURE AROUND OTHER INTERNAL PROSTH JOINT, INIT; Z96.649 - PRESENCE OF UNSPECIFIED ARTIFICIAL HIP JOINT SNOMED Code(s): 221659500 Comment: S/P ORIF per Dr. Flores 08/14/16. Epidural anesthesia. Dr. Flores has recommended very limited walking for the next 2 weeks. (2) Anemia Current Visit: Yes Status: Acute Code(s): D64.9 - ANEMIA, UNSPECIFIED SNOMED Code(s): 068494090 Comment: EBL 500 ml. Received 2 U PC's 08/14. Hct 28 on 08/16, about her baseline. (3) Hypotension Current Visit: Yes Status: Acute Comment: Related to OR blood loss, epidural anesthesia, other OR meds. Improved. (4) Hypothyroid Current Visit: Yes Status: Acute Code(s): E03.9 - HYPOTHYROIDISM, UNSPECIFIED SNOMED Code(s): 46441765 Comment: TSH wnl 06/21/16. (5) Delirium Current Visit: Yes Status: Acute Code(s): R41.0 - DISORIENTATION, UNSPECIFIED SNOMED Code(s): 5041590 Comment: Occurred night after surgery. Resolved the next AM. Pt does not recall this event. (6) Constipation Current Visit: Yes Status: Acute Code(s): K59.00 - CONSTIPATION, UNSPECIFIED SNOMED Code(s): 26332328 Comment: PEG 17 gm bid started 7/5 PM. Laculose 30 ml given 7/6 AM and I ordered another 60 ml.
[2016-08-18] MEDS: Levothyroxine TAB* 112 MCG TAB PO SCH (05:21)
[2016-08-18] MEDS: oxyCODONE/Acetamin 5/325 MG* TAB PO PRN ×2 (05:22→10:47)
[2016-08-18 06:47] LABS: Hematocrit 26 % (35-47); Hemoglobin 8.6 g/dl (12.0-16.0)
[2016-08-18] MEDS: Polyethylene Glycol 3350* 17 GM PACKET PO SCH (07:13)
[2016-08-18] MEDS: Docusate CAP* 100 MG PO SCH (08:50)
[2016-08-18] MEDS: Heparin VIAL(*) 5000 UNITS/ML VIAL (FIVE THOUSAND) SUBCUT SCH (08:50)
[2016-08-18] MEDS: Vitamin THERAPEUTIC TAB PO SCH (08:50)
--- NOTE | 2016-08-18 09:37 | PN ---
Progress Note - Progress Note Date of Service: 08/18/16 SOAP: Subjective: []Patient seen at bedside. Doing well, minimal hip pain. Looking forward to going to rehab today. Objective: [] Vital Signs Temp 98.2 F 08/18/16 03:25 Pulse 81 08/18/16 03:25 Resp 18 08/18/16 07:22 BP 110/59 08/18/16 03:25 Pulse Ox 96 08/18/16 03:25 Intake & Output 08/17/16 08/18/16 08/18/16 18:59 06:59 18:59 Intake Total 1305 1000 Output Total 575 800 600 Balance 730 200 -600 Intake: Oral 1305 1000 Output: Urine 575 800 600 Other: Estimated Void Medium # Bowel Movements 0 Estimated Stool Amount Medium # Voids 1 1 Laboratory Results - last 24 hr 08/18/16 08/18/16 06:14 06:14 Hgb 8.6 L Hct 26 L Blood Type O Positive Antibody Screen Negative right hip incision dressings changed. No drainage, wound healing well. calf non tender and soft +DF/PF NVID Assessment: []s/p revision periprosthetic femur fracture POD #4 Plan: [][facility] Continue current ambulation restrictions Ecotrin 325 mg po daily Follow up as scheduled, [address] Flores
--- NOTE | 2016-08-18 10:28 | DS ---
DISCHARGE SUMMARY: DATE OF ADMISSION: 08/11/16 DATE OF DISCHARGE: 08/18/16 ATTENDING PHYSICIAN: Peter Flores MD (dictate by EZEQUIEL Campos) ADMISSION DIAGNOSIS: Right hip periprosthetic femur fracture. DISCHARGE DIAGNOSIS: Right hip periprosthetic femur fracture. SURGERY PERFORMED: Revision right total hip femoral component and repair periprosthetic fracture. HOSPITAL COURSE: The patient is a 76-year-old female who underwent right total hip arthroplasty by Dr. Flores on 06/27/16. She initially had done well, but then had increased pain in the hip and had x-rays sometime later after a physical therapy session, which was increasingly bothersome, that revealed no fractures initially. She presented to the office on the 09 of August and had repeat x-rays which did reveal a periprosthetic fracture of the right femur around the femoral stem. She was given options and she elected to proceed with revision of her prosthesis. She was admitted on 08/11/16 for surgery; however, surgery subsequently had been cancelled due to contamination issues with the trays and was rescheduled for 08/14/16. She did undergo the proceed on the 14 of August under the care of Dr. Peter Flores and tolerated the procedure well. Postoperatively, she was transfused with 2 units of packed red blood cells and continued to have a stable hematocrit and hemoglobin throughout the remainder of her hospital stay. She may bear weight as tolerated on the right lower extremity, but only taking 3 to 4 steps to a chair. She was able to get out of bed well with therapy and mastered these skills without any difficulties. She had no other postoperative complications. She was found to be stable medically and orthopedically for discharge to [facility] on the date of 08/18/16. CONDITION ON DISCHARGE: Per review of her chart, she is afebrile. Her vital signs are stable. Her wound was inspected today and it is healing without evidence of erythema, drainage, or signs of infection. Her calf is soft and nontender. She has active dorsiflexion and plantar flexion of the right ankle. Her neurovascular status is intact distally with a 2+ pedal pulse and full sensation. PLAN: Discharge to [facility]. She will continue with the current restrictions in her ambulation, 3 to 4 steps bed to chair, weightbearing as tolerated on the right lower extremity. A new dressing was applied today with antibiotic gauze and Telfa. This should be changed daily. She will be on Ecotrin 325 mg p.o. daily. A followup appointment is scheduled with Dr. Flores in roughly 2 weeks in the office for repeat x-rays. If there is any change in her condition orthopedically, the office should be contacted. EZEQUIEL CAMPOS [id number]/[facility] #: [id number] [id number]
[2016-08-18 13:26] VITALS: BP 123/62
== END 2016-08-18 12:00 | DRG 466 ==
LOC: SSU 07:45
PROVIDERS: ADMIT Orthopaedic Surgery; ATTEND Orthopaedic Surgery
PROC: 0SPR0JZ Removal of Synthetic Substitute from Right Hip Joint, Femoral Surface, Open Approach (ICD-10-PCS; 2016-08-14)
PROC: 0QS604Z Reposition Right Upper Femur with Internal Fixation Device, Open Approach (ICD-10-PCS; 2016-08-14)
PROC: 30233N1 Transfusion of Nonautologous Red Blood Cells into Peripheral Vein, Percutaneous Approach (ICD-10-PCS; 2016-08-14)
PROC: 0SRR0JZ Replacement of Right Hip Joint, Femoral Surface with Synthetic Substitute, Open Approach (ICD-10-PCS; principal; 2016-08-14 09:00)
DX: M97.01XA Periprosthetic fracture around internal prosthetic right hip joint, initial encounter (principal); S72.301A Unspecified fracture of shaft of right femur, initial encounter for closed fracture; I95.9 Hypotension, unspecified; F05 Delirium due to known physiological condition; D62 Acute posthemorrhagic anemia; T84.030A Mechanical loosening of internal right hip prosthetic joint, initial encounter; Z96.643 Presence of artificial hip joint, bilateral; E03.9 Hypothyroidism, unspecified; L29.9 Pruritus, unspecified; R00.0 Tachycardia, unspecified; K59.00 Constipation, unspecified; Y83.8 Other surgical procedures as the cause of abnormal reaction of the patient, or of later complication, without mention of misadventure at the time of the procedure; Y79.2 Prosthetic and other implants, materials and accessory orthopedic devices associated with adverse incidents; Z90.49 Acquired absence of other specified parts of digestive tract; Y92.9 Unspecified place or not applicable; Z88.0 Allergy status to penicillin; Z79.82 Long term (current) use of aspirin
CPT/HCPCS: 36415; 76000; 80048; 82565; 84520; 85014; 85018; 85025; 85027; 85610; 85652; 85730; 86140; 86850; 86900; 86901; 86922; 87070; 87073; 87205; 88300; 93005; 94760; A9270-GY; C1776; J0690; J1200; J1644; J1940; J2250; J2405; J2704; J2795; J3010; P9040